=== PATIENT | male | born 1940 | race American Indian/Alaskan Native ===

== ENCOUNTER 2017-01-29 22:47 | Inpatient (IN) | payer MEDICARE ==
[2017-01-29] MEDS ORDERED: PROVENTIL IH ONE (23:12)
[2017-01-29] MEDS ORDERED: ATROVENT IH ONE (23:12)
[2017-01-29] MEDS ORDERED: TENIVAC IM ONE ×2 (23:13→23:32)
[2017-01-29] MEDS ORDERED: BOOSTRIX IM ONE (23:25)
--- NOTE | 2017-01-29 23:28 | Emergency Department Report ---
ED Fall HPI - General Chief Complaint: Fall Stated Complaint: FALL Time Seen by Provider: 01/29/17 23:05 Source: patient, EMS Mode of arrival: Stretcher Limitations: Physical Limitation, Other (dementia) - History of Present Illness Initial Comments: 76-year-old male with a past medical history of CHF, COPD, CVA, dementia, diabetes, hypertension, and renal disease presents to the hospital from [facility] with fall injury. Patient apparently fell out of bed. at bedside states that bed is fairly low he typically has a mat on the ground next to bed in case of fall. She did not see the mat earlier today. Patient sustained the contusion and laceration to the forehead and bridge of nose. No reports of LOC. Patient denies any pain. He is alert and oriented to self but states year as 2012 and did not realize he was in the hospital. reports tetanus is up-to-date within 10 years. However, per halfway tetanus is not up to date. Patient presents with hypoxia and audible wheezing. reports the patient takes 2 L oxygen at the halfway but the last 2-3 days he has had increased wheezing and shortness of breath episodes. Positive cough reported. senior care increase his oxygen to 3 L over the last several days. - Related Data Home Medications Medication Instructions Recorded Confirmed Last Taken Allopurinol [Zyloprim] 300 mg PO QDAY 06/21/15 06/21/15 Unknown Aspirin [Aspirin BABY CHEW TAB] 81 mg PO QDAY 06/21/15 06/21/15 Unknown Budesoni/Formoterol 80-4.5(Nf) 2 puff IH BID 06/21/15 06/21/15 Unknown [Symbicort 80-4.5 (Nf)] Donepezil [Aricept] 10 mg PO QDAY 06/21/15 06/21/15 Unknown Doxazosin [Cardura] 8 mg PO QDAY 06/21/15 06/21/15 Unknown Finasteride [Proscar] 5 mg PO QDAY 06/21/15 06/21/15 Unknown Gabapentin [Gralise] 300 mg PO TID 06/21/15 06/21/15 Unknown Heparin [Heparin 10,000 Units/10 5,000 unit IV Q12H 06/21/15 06/21/15 Unknown ml] Insulin Lispro [HumaLOG VIAL] 0 - 20 units SQ TIDAC 06/21/15 06/21/15 Unknown Insulin Lispro [HumaLOG VIAL] 1 - 5 units SQ TIDAC 06/21/15 06/21/15 Unknown Insulin NPH/Regular [NovoLIN 70/30] 12 unit SQ BID 06/21/15 06/21/15 Unknown Memantine HCl 10 mg PO BID 06/21/15 06/21/15 Unknown Metoprolol [Lopressor TAB] 25 mg PO QDAY 06/21/15 06/21/15 Unknown Pantoprazole [Protonix TAB] 40 mg PO QDAY 06/21/15 06/21/15 Unknown Tamsulosin [Flomax] 0.4 mg PO QDAY 06/21/15 06/21/15 Unknown hydrALAZINE [Apresoline TAB] 10 mg PO Q6H 06/21/15 06/21/15 Unknown predniSONE [Deltasone] 5 mg PO QDAY 06/21/15 06/21/15 Unknown Previous Rx's Medication Instructions Recorded Last Taken Type Furosemide [Lasix TAB] 40 mg PO QDAY #30 tablet 07/02/15 Unknown Rx Allergies Allergy/AdvReac Type Severity Reaction Status Date / Time No Known Allergies Allergy Verified 06/21/15 00:06 ED Review of Systems ROS: Stated complaint: FALL Other details as noted in HPI Comment: All other systems reviewed and negative Other: Limited due to dementia Constitutional: No fevers chills Respiratory:as per hpi Cardiovascular: Denies chest pain GI: Denies abdominal pain, nausea, vomiting : Denies dysuria Neurologic: Denies headache ED Past Medical Hx - Past Medical History Previous Medical History?: Yes Hx Hypertension: Yes Hx CVA: Yes (2009) Hx Congestive Heart Failure: Yes Hx Diabetes: Yes Hx Renal Disease: Yes Hx COPD: Yes Hx Dementia: Yes - Surgical History Past Surgical History?: Yes Hx Cholecystectomy: Yes Additional Surgical History: back surgery 1992, neck surgery 1996, gall bladder drain placement april 2015. - Social History Smoking Status: Unknown if ever smoked - Medications Home Medications: Home Medications Medication Instructions Recorded Confirmed Last Taken Type Allopurinol [Zyloprim] 300 mg PO QDAY 06/21/15 06/21/15 Unknown History Aspirin [Aspirin BABY CHEW TAB] 81 mg PO QDAY 06/21/15 06/21/15 Unknown History Budesoni/Formoterol 80-4.5(Nf) 2 puff IH BID 06/21/15 06/21/15 Unknown History [Symbicort 80-4.5 (Nf)] Donepezil [Aricept] 10 mg PO QDAY 06/21/15 06/21/15 Unknown History Doxazosin [Cardura] 8 mg PO QDAY 06/21/15 06/21/15 Unknown History Finasteride [Proscar] 5 mg PO QDAY 06/21/15 06/21/15 Unknown History Gabapentin [Gralise] 300 mg PO TID 06/21/15 06/21/15 Unknown History Heparin [Heparin 10,000 Units/10 5,000 unit IV Q12H 06/21/15 06/21/15 Unknown History ml] Insulin Lispro [HumaLOG VIAL] 0 - 20 units SQ TIDAC 06/21/15 06/21/15 Unknown History Insulin Lispro [HumaLOG VIAL] 1 - 5 units SQ TIDAC 06/21/15 06/21/15 Unknown History Insulin NPH/Regular [NovoLIN 70/30] 12 unit SQ BID 06/21/15 06/21/15 Unknown History Memantine HCl 10 mg PO BID 06/21/15 06/21/15 Unknown History Metoprolol [Lopressor TAB] 25 mg PO QDAY 06/21/15 06/21/15 Unknown History Pantoprazole [Protonix TAB] 40 mg PO QDAY 06/21/15 06/21/15 Unknown History Tamsulosin [Flomax] 0.4 mg PO QDAY 06/21/15 06/21/15 Unknown History hydrALAZINE [Apresoline TAB] 10 mg PO Q6H 06/21/15 06/21/15 Unknown History predniSONE [Deltasone] 5 mg PO QDAY 06/21/15 06/21/15 Unknown History Furosemide [Lasix TAB] 40 mg PO QDAY #30 tablet 07/02/15 Unknown Rx ED Physical Exam - General Limitations: Physical Limitation - Other Other exam information: General: Mild limitation due to dementia Head exam: Vertical mid forehead superficial laceration 1 cm, superficial laceration horizontal to the nasal bridge 1cm Eyes exam: Normal appearance, pupils equal reactive to light ENT: Moist mucous membrane, no septal hematoma Neck exam: Normal inspection, full range of motion, no meningismus nontender Respiratory exam: Prolonged expiratory phase, audible expiratory wheezing and tachypnea, bibasilar crackles Cardiovascular: Normal rate and rhythm Abdomen: Soft, nondistended, and nontender, with normal bowel sounds, no rebound, or guarding Extremity: Full range of motion normal inspection no deformity Back: Normal Inspection, full range of motion, no tenderness Neurologic: Alert, no facial droop, speech clear, equal strength bilaterally Psychiatric: normal affect, normal mood Skin: Warm, dry, intact ED Course Vital Signs 01/29/17 01/29/17 22:58 23:21 Pulse Rate 67 Pulse Rate [ 69 Throughout] Respiratory 22 Rate Respiratory 20 Rate [ Throughout] Blood Pressure 119/73 O2 Sat by Pulse 91 Oximetry - Reevaluation(s) Reevaluation #1: 01/30/17 02:47 Patient breathing improved after receiving albuterol and Atrovent. Patient also received medication for hyperkalemia including Kayexalate, Lasix, sodium bicarbonate, insulin, and glucose. - Laceration /Wound Repair Head Wound Location: face (forehead, nasal bridge) Wound Length (cm): 1 (each wound 1 cm x 2) Wound's Depth, Shape: superficial, linear Wound Explored: clean Irrigated w/ Saline (ccs): 20 Betadine Prep?: Yes Wound Debrided: none Wound Repaired With: Dermabond Layer Closure?: No Sterile Dressing Applied?: No ED Medical Decision Making - Lab Data Result diagrams: 01/29/17 23:20 01/29/17 23:20 Lab Results 01/29/17 01/29/17 Range/Units 23:20 23:20 WBC 6.7 (4.5-11.0) K/mm3 RBC 3.80 (3.65-5.03) M/mm3 Hgb 10.8 L (11.8-15.2) gm/dl Hct 32.8 L (35.5-45.6) % MCV 86 (84-94) fl MCH 28 (28-32) pg MCHC 33 (32-34) % RDW 13.9 (13.2-15.2) % Plt Count 156 (140-440) K/mm3 Lymph % (Auto) 22.0 (13.4-35.0) % Clarke % (Auto) 9.1 H (0.0-7.3) % Eos % (Auto) 8.1 H (0.0-4.3) % Baso % (Auto) 0.2 (0.0-1.8) % Lymph # 1.5 (1.2-5.4) K/mm3 Clarke # 0.6 (0.0-0.8) K/mm3 Eos # 0.5 H (0.0-0.4) K/mm3 Baso # 0.0 (0.0-0.1) K/mm3 Seg Neutrophils % 60.6 (40.0-70.0) % Seg Neutrophils # 4.1 (1.8-7.7) K/mm3 Sodium 128 L (137-145) mmol/L Potassium 6.0 H (3.6-5.0) mmol/L Chloride 84.4 L (98-107) mmol/L Carbon Dioxide 35 H (22-30) mmol/L Anion Gap 15 mmol/L BUN 24 H (9-20) mg/dL Creatinine 1.1 (0.8-1.5) mg/dL Estimated GFR > 60 ml/min BUN/Creatinine Ratio 21.81 % Glucose 191 H (75-100) mg/dL Calcium 9.1 (8.4-10.2) mg/dL NT-Pro-B Natriuret Pep 1219 H (0-900) pg/mL - EKG Data -: EKG Interpreted by Me (nsr twyla [id number], RBBB) - EKG Data When compared to previous EKG there are: no significant change (compared to ) - Radiology Data Radiology results: report reviewed CT head: Frontal scalp swelling without intracranial abnormality CT cervical spine: No acute findings chest x-ray: Diffuse interstitial and bibasilar opacities with small bilateral pleural effusions. Slightly more focal in the right perihilar and left lobe. Consider pomade even with atelectasis cannot exclude pneumonia. Mediastinum widening may be related to portable technique recommend PA/lateral or chest CT if clinical concern - Medical Decision Making Patient does not show any signs of acute injury secondary to fall except for superficial lacerations which were repaired with Dermabond. Coincidently patient also had respiratory symptoms and requires admission for CHF/pulmonary edema, hyperkalemia, and other electrolyte abnormalities. - Differential Diagnosis chf, copd, pneumonia, fxt, ich, contusion Critical Care Time: No Critical care attestation.: If time is entered above; I have spent that time in minutes in the direct care of this critically ill patient, excluding procedure time. ED Disposition Clinical Impression: Pulmonary edema, COPD exacerbation, Oxygen dependent, Hyperkalemia, Hyponatremia, Fall, Face lacerations, Minor head injury Disposition: OP ADMITTED IP TO THIS HOSP Is pt being admited?: Yes Condition: Stable Time of Disposition: 02:52
[2017-01-29 23:34] LABS: Basophils % (Auto) 0.2 % (0.0-1.8); Eosinophils % (Auto) 8.1 % (0.0-4.3); Hematocrit 32.8 % (35.5-45.6); Hemoglobin 10.8 gm/dl (11.8-15.2); Mean Corpuscular HGB Conc 33 % (32-34); Mean Corpuscular Hemoglobin 28 pg (28-32); Mean Corpuscular Volume 86 fl (84-94); Platelet Count 156 K/mm3 (140-440); Red Cell Distribution Width 13.9 % (13.2-15.2); White Blood Count 6.7 K/mm3 (4.5-11.0)
[2017-01-29 23:57] LABS: Anion Gap 15 mmol/L; BUN/Creatinine Ratio 21.81; Blood Urea Nitrogen 24 mg/dL (9-20); Calcium 9.1 mg/dL (8.4-10.2); Carbon Dioxide 35 mmol/L (22-30); Chloride 84.4 mmol/L (98-107); Glucose 191 mg/dL (75-100); Sodium 128 mmol/L (137-145)
[2017-01-30] MEDS ORDERED: BOOSTRIX IM ONE (00:15)
[2017-01-30] MEDS ORDERED: D50W (25GM) IV ONE (00:29)
[2017-01-30] MEDS ORDERED: SODIUM BICARBONATE IV ONE ×2 (00:29)
[2017-01-30] MEDS ORDERED: KIONEX PO ONE (00:29)
[2017-01-30] MEDS ORDERED: LASIX IV ONE (00:29)
--- NOTE | 2017-01-30 01:04 | XRay Report ---
FINAL REPORT PROCEDURE: XR CHEST 1V AP TECHNIQUE: Chest radiograph anteroposterior view. CPT 01100 HISTORY: Shortness of breath. Wheezing. COMPARISON: No prior studies are available for comparison. FINDINGS: Heart: Normal. Mediastinum/Vessels: Mild mediastinal widening.. Lungs/Pleural space: Diffuse interstitial and bibasilar opacities. Slightly more focal right perihilar and left lower lobe airspace disease. Small bilateral pleural effusions. Bony thorax: Osteopenia with degenerative changes of the spine and shoulder. Cervical spine hardware. Life support devices: None. IMPRESSION: Diffuse interstitial and bibasilar opacities with small bilateral pleural effusions. Slightly more focal in the right perihilar and left lower lobe. Consider pulmonary edema with atelectasis, cannot exclude pneumonia. Consider attention on followup PA and lateral chest radiograph. Mediastinal widening, may be related to portable technique. This can also be re-evaluated on PA and lateral chest radiograph or even chest CT depending on clinical concern..
--- NOTE | 2017-01-30 01:53 | Cat Scan Report ---
FINAL REPORT PROCEDURE: CT HEAD/BRAIN WO CON TECHNIQUE: Computerized tomography of the head was performed without contrast material. HISTORY: head injury, fall COMPARISON: No prior studies are available for comparison. FINDINGS: Skull and scalp: There is frontal scalp swelling. There is no skull fracture.. Paranasal sinuses: There has been endoscopic nasal sinus surgery. There is a 2 centimeter polyp or retention cyst in the right maxillary sinus. There are no air-fluid levels.. Ventricles and subarachnoid spaces: There is moderate central and cortical atrophy. There is no hydrocephalus per. Cerebrum: No evidence of hemorrhage, acute infarction or mass . Cerebellum and brainstem: No evidence of hemorrhage, acute infarction or mass. Vasculature: Normal. Comments: None. IMPRESSION: There is frontal scalp swelling. There is no intracranial hemorrhage. There is no skull fracture.
--- NOTE | 2017-01-30 02:36 | Cat Scan Report ---
FINAL REPORT PROCEDURE: CT CERVICAL SPINE WO CON TECHNIQUE: Computerized tomography of the cervical spine was performed from the skull base to T1 without contrast material. HISTORY: head injury, fall COMPARISON: No prior studies are available for comparison. FINDINGS: There is hardware transfixing C4, C5, C6 and C7. The hardware is intact. There are degenerative disc changes at C2-C3, C3-C4 and C7-T1. There are no fractures or malalignments. The facet joints are intact. The prevertebral soft tissues are normal in thickness. The skull base and the foramen magnum are intact. IMPRESSION: There are degenerative and postsurgical changes as described. There is no fracture..
[2017-01-30] MEDS ORDERED: NITROSTAT SL PRN (03:31)
[2017-01-30] MEDS ORDERED: ZOFRAN IV PRN (03:36)
[2017-01-30] MEDS ORDERED: TYLENOL PO PRN (03:39)
[2017-01-30] MEDS ORDERED: ROBITUSSIN PO PRN (03:41)
[2017-01-30] MEDS ORDERED: D50W (25GM) IV PRN (03:51)
--- NOTE | 2017-01-30 05:53 | History and Physical Report ---
CHIEF COMPLAINT: Shortness of breath and wheezing. Other complaint includes a fall. HISTORY OF PRESENT ILLNESS: The patient is a 76-year-old male brought from assisted after he fell from the bed with bruises to the face and forehead. The patient also has been having congestion and wheezing with shortness of breath according to the going on for about 2 to 3 days, there is no history of chest pain, no history of fever or chills, no history of nausea or vomiting. The patient did not lose consciousness after falling down and was brought to the Emergency Room. PAST MEDICAL HISTORY: Pertinent for congestive heart failure, COPD, hypertension, cerebrovascular accident, diabetes mellitus, renal insufficiency, and dementia. Also the patient has past history of benign prostatic hypertrophy, gout. PAST SURGICAL HISTORY: Pertinent for cholecystectomy, back surgery, and neck surgery. FAMILY HISTORY: Noncontributory. SOCIAL HISTORY: The patient stays at a assisted, does not smoke, does not drink alcohol, and does not use illicit drugs. MEDICATIONS: The patient is on allopurinol 300 mg by mouth daily, aspirin 81 mg by mouth daily, budesonide and formoterol, Symbicort 80/4.5 two puffs by inhalation twice daily, benazepril 10 mg by mouth daily, doxazosin or Cardura 8 mg by mouth daily, finasteride, Proscar 5 mg by mouth daily, gabapentin 300 mg p.o. t.i.d., heparin 5000 units q 12 hours most likely insulin lispro, Humalog sliding scale, insulin NPH/regular, Novolin 70/30, 12 units subq b.i.d., memantine hydrochloride 10 mg p.o. b.i.d., Lopressor 25 mg p.o. daily, pantoprazole 40 mg by mouth daily, tamsulosin 0.4 mg daily, Apresoline 10 mg every 6 hours, prednisone 5 mg p.o. daily, furosemide 40 mg p.o. daily. The patient is also on Lasix 40 mg by mouth daily. ALLERGIES: There are no known drug allergies. HOME MEDICATIONS: The patient is also on hydralazine 10 mg every 6 hours and prednisone 5 mg by mouth daily. REVIEW OF SYSTEMS: CONSTITUTIONAL: There is no fever, no chills, no diaphoresis. HEENT: There is no headache or sore throat. CARDIOVASCULAR SYSTEM: There is no chest pain or orthopnea. RESPIRATORY SYSTEM: There is shortness of breath, congestion, and cough. GASTROINTESTINAL SYSTEM: There is no nausea, no vomiting, no abdominal pain, diarrhea or constipation. NEUROLOGIC SYSTEM: There is no numbness, no dizziness, no altered mental status. MUSCULOSKELETAL SYSTEM: There is no joint pain or swelling. DERMATOLOGICAL SYSTEM: There are bruises on the face and forehead following a fall, there is no itching. GENITOURINARY SYSTEM: There is no dysuria, hematuria or flank pain. Rest of system review is normal. PHYSICAL EXAMINATION: GENERAL: At the time of exam, the patient was found to be alert and oriented x 3, and not in acute distress. VITAL SIGNS: Showed a normal temperature with pulse of 79, respiration of 14, blood pressure 118/56, O2 sat of 94% on room air. HEENT: Eyes show pupils to be equal, round, and reactive to light and accommodation. There are bruises on the forehead and also in the nasal bridge. NECK: Supple with no JVD or carotid bruit. CARDIOVASCULAR SYSTEM: Showed normal first and second heart sounds with no gallops or murmur. RESPIRATORY SYSTEM: Show scattered crackles bilaterally with good air entry on both sides. GASTROINTESTINAL SYSTEM: Show abdomen to be full, soft, nontender with no organomegaly or rigidity. NEUROLOGICAL: Showed no focal deficit. MUSCULOSKELETAL: Show no joint swelling or tenderness. DERMATOLOGICAL SYSTEM: Showing bruises on the forehead and nasal area of the face. GENITOURINARY: Show no costovertebral angle tenderness. PERTINENT LABORATORY AND IMAGING STUDIES: The patient had CT of the head done with no report of any acute intracranial process. Also, the patient has cervical spine CT done that shows no fracture or dislocation. The patient's chest x-ray report shows diffuse interstitial bibasilar opacity with small bilateral pleural effusions. There is finding of slightly more interstitial opacity in the right perihilar and left lower lobe and the radiologist say to consider pulmonary edema with atelectasis, exclude pneumonia. consider the patient on follow up of PA and lateral chest radiograph. Also mentioned widening mediastinum that he thinks is related to portable technique and he says that this can be reevaluated on PA and lateral chest radiograph or even a CT of the chest. Please note that the patient's lab results shows CBC with normal white count, low hemoglobin of 10.8 and low hematocrit of 32.8 with chemistry showing low sodium of 128 and high potassium level of 6.0 with high CO2 of 35 and elevated proBNP, brain natriuretic peptide, of 1219. DIAGNOSES: 1. Congestive heart failure exacerbation. 2. Low sodium leve/ hyponatremia. 3. Hyperkalemia. PLAN: The patient will be admitted to medical floor and telemetry, using the CHF pathway, and we will have cardiac enzymes involving troponin, total CK, and CK-MB checked q 6 hours x 2 more levels. The patient will have 2D echo done this morning and would have basic metabolic panel checked this morning. The patient will be on IV Lasix 40 mg daily. The patient will be on nitro paste half inch to anterior chest wall q 6 hours and will be on heparin 5000 units subQ q 8 hours for DVT prophylaxis. The patient will be on IV Zofran 4 mg q 6 hours for nausea and vomiting and Tylenol 650 mg by mouth q 4 hours for fever and headache. The patient would be on Robitussin suspension 200 mg p.o. q 4 hours as needed for cough and will be on baby aspirin 81 mg by mouth daily. The patient's diet will be cardiac diet and consistent carbohydrate diet. The patient will be on Accu-Chek a.c. and at bedtime followed by low-dose sliding scale using regular insulin. The patient will have strict input and output fluids monitoring. The patient's home medications will be reconciled and applied. JOB# [id number] [facility]/FAIZA REYES
[2017-01-30 06:36] LABS: Creatine Kinase MB 3.8 ng/mL (0.0-4.0)
[2017-01-30] MEDS: HEPARIN SUB-Q SCH ×3 (06:50→21:21)
[2017-01-30] MEDS: NITRO-BID 2% TP SCH ×4 (06:51→17:47)
[2017-01-30 06:54] LABS: Anion Gap 16 mmol/L; Blood Urea Nitrogen 26 mg/dL (9-20); Calcium 8.7 mg/dL (8.4-10.2); Carbon Dioxide 35 mmol/L (22-30); Chloride 85.2 mmol/L (98-107); Glucose 139 mg/dL (75-100); Potassium 5.1 mmol/L (3.6-5.0); Sodium 131 mmol/L (137-145)
[2017-01-30] MEDS ORDERED: DIVALPROEX SODIUM 125 MG PO SCH (10:00)
[2017-01-30] MEDS ORDERED: LACTOBACILLUS ACIDOPHILUS PO SCH (10:00)
[2017-01-30] MEDS ORDERED: CELEXA 10 MG PO SCH (10:00)
[2017-01-30] MEDS ORDERED: NON-FORMULARY (Memantine Hcl [Namenda Xr] 28 MG) PO SCH (10:00)
[2017-01-30] MEDS ORDERED: MULTIVIT WITH CALCIUM IRON MIN PO SCH (10:00)
[2017-01-30] MEDS ORDERED: ARIPIPRAZOLE 2.5 MG PO SCH (10:00)
[2017-01-30] MEDS ORDERED: NON-FORMULARY (Metoprolol Succinate Er Tab 25 MG) PO SCH (10:00)
[2017-01-30] MEDS ORDERED: NON-FORMULARY (Prednisone 5 MG) PO SCH (10:00)
[2017-01-30] MEDS ORDERED: RISPERDAL PO SCH (10:00)
[2017-01-30] MEDS: FERGON PO SCH (10:30)
[2017-01-30] MEDS: NAMENDA XR PO SCH (10:30)
[2017-01-30] MEDS: LACTINEX PO SCH ×2 (10:30→21:20)
[2017-01-30] MEDS: DELTASONE PO SCH (10:31)
[2017-01-30] MEDS: celeXA PO SCH (10:31)
[2017-01-30] MEDS: PROSCAR PO SCH (10:31)
[2017-01-30] MEDS: ABILIFY PO SCH (10:31)
[2017-01-30] MEDS: THERAGRAN-M Tab PO SCH (10:31)
[2017-01-30] MEDS: RisperDAL PO SCH ×2 (10:31→21:20)
[2017-01-30] MEDS: BABY ASPIRIN PO SCH (10:32)
[2017-01-30] MEDS: TOPROL XL PO SCH (10:32)
[2017-01-30] MEDS: LASIX IV SCH (10:32)
[2017-01-30 14:19] LABS: Creatine Kinase MB 3.4 ng/mL (0.0-4.0)
[2017-01-30] MEDS: ATROVENT IH SCH ×2 (17:07→20:15)
--- NOTE | 2017-01-30 17:18 | Consultation ---
History of Present Illness Consult date: 01/30/17 History of present illness: 76-year-old male with a past medical history of CHF, COPD, CVA, dementia, diabetes, hypertension, and renal disease presents to the hospital from [facility] with fall injury. Patient apparently fell out of bed. at bedside states that bed is fairly low he typically has a mat on the ground next to bed in case of fall. She did not see the mat earlier today. Patient sustained the contusion and laceration to the forehead and bridge of nose. No reports of LOC. Patient denies any pain. He is alert and oriented to self but states year as 2012 and did not realize he was in the hospital. reports tetanus is up-to-date within 10 years. However, per senior care tetanus is not up to date. Patient presents with hypoxia and audible wheezing. reports the patient takes 2 L oxygen at the senior care but the last 2-3 days he has had increased wheezing and shortness of breath episodes. Positive cough reported. detention increase his oxygen to 3 L over the last several days. Patient is comfortable,no family available,patient could not give much history. Past History Past Medical History: COPD, hypertension, stroke (hemiplegia from intracerebral bleed affecting right side(hx from [place] records).), other (legal blindness, psychotic disorder.) Medications and Allergies Allergies Allergy/AdvReac Type Severity Reaction Status Date / Time No Known Allergies Allergy Verified 06/21/15 00:06 Home Medications Medication Instructions Recorded Confirmed Last Taken Type ALBUTEROL NEB's [Proventil 0.083% 2.5 mg TID PRN 01/30/17 01/30/17 Unknown History NEBS] ARIPiprazole [Aripiprazole] 2.5 mg PO DAILY 01/30/17 01/30/17 Unknown History Aspirin [Aspirin BABY CHEW TAB] 81 mg PO QDAY 01/30/17 01/30/17 Unknown History Celexa 10 mg DAILY 01/30/17 01/30/17 Unknown History Divalproex Sodium 125 mg BID 01/30/17 01/30/17 Unknown History Donepezil HCl 10 mg PO HS 01/30/17 01/30/17 Unknown History Ferrous Gluconate [Fergon] 324 mg PO DAILY 01/30/17 01/30/17 Unknown History Finasteride [Proscar] 5 mg DAILY 01/30/17 01/30/17 Unknown History Imodium A-D 2 caplet Q1HR PRN MDD 8 TABS/24 01/30/17 01/30/17 Unknown History HOURS Insulin Regular, Human 3 units SC ACHS 01/30/17 01/30/17 Unknown History Ipratropium [Atrovent NEB] 0.5 mg Q8HR PRN 01/30/17 01/30/17 Unknown History Lactobacillus Acidophilus 1 tab BID 01/30/17 01/30/17 Unknown History [Acidophilus] Levemir 17 units SQ HS 01/30/17 01/30/17 Unknown History Magnesium Hydroxide [Milk of 30 ml PO HS PRN 01/30/17 01/30/17 Unknown History Magnesia] Memantine HCl [Namenda Xr] 28 mg DAILY 01/30/17 01/30/17 Unknown History Metoprolol SUCCINATE ER TAB 25 mg DAILY 01/30/17 01/30/17 Unknown History Multivit with Calcium,Iron,Min 1 tab DAILY 01/30/17 01/30/17 Unknown History Prednisone 5 mg DAILY 01/30/17 01/30/17 Unknown History QUEtiapine [SEROquel] 25 mg PO HS 01/30/17 01/30/17 Unknown History RisperDAL 0.25 mg BID 01/30/17 01/30/17 Unknown History Tamsulosin 0.4 mg HS 01/30/17 01/30/17 Unknown History guaiFENesin 100 mg Q6HR PRN 01/30/17 01/30/17 Unknown History Active Meds: Active Medications Acetaminophen (Tylenol) 650 mg PO Q6H PRN PRN Reason: For Pain/Fever/Headache Aripiprazole (Abilify) 2.5 mg PO QDAY [facility] Last Admin: 01/30/17 10:31 Dose: 2.5 mg Aspirin (Baby Aspirin) 81 mg PO QDAY [facility] Last Admin: 01/30/17 10:32 Dose: 81 mg Citalopram Hydrobromide (Celexa) 10 mg PO DAILY [facility] Last Admin: 01/30/17 10:31 Dose: 10 mg Dextrose (D50w (25gm)) 50 ml IV PRN PRN PRN Reason: Hypoglycemia Divalproex Sodium (Depakote Dr) 125 mg PO BID [facility] Last Admin: 01/30/17 10:31 Dose: 125 mg Donepezil HCl (Aricept) 10 mg PO [facility] Ferrous Gluconate (Fergon) 324 mg PO DAILY [facility] Last Admin: 01/30/17 10:30 Dose: 324 mg Finasteride (Proscar) 5 mg PO DAILY [facility] Last Admin: 01/30/17 10:31 Dose: 5 mg Furosemide (Lasix) 40 mg IV QDAY [facility] Last Admin: 01/30/17 10:32 Dose: 40 mg Guaifenesin (Robitussin) 200 mg PO Q4H PRN PRN Reason: Cough Heparin Sodium (Porcine) (Heparin) 5,000 unit SUB-Q Q8HR [facility] Last Admin: 01/30/17 13:18 Dose: 5,000 unit Levofloxacin/Dextrose (Levaquin 500mg/100ml) 500 mg in 100 mls @ 100 mls/hr IV Q24HR [facility] PRN Reason: Protocol Insulin Human Regular (Novolin R) 0 units SUB-Q [facility] PRN Reason: Protocol Last Admin: 01/30/17 13:18 Dose: 1 units Ipratropium [place] (Atrovent) 0.5 mg IH QIDRT [facility] Last Admin: 01/30/17 17:07 Dose: 0.5 mg Lactobacillus Acidophilus (Lactinex) 1 each PO BID [facility] Last Admin: 01/30/17 10:30 Dose: 1 each Memantine (Namenda Xr) 28 mg PO DAILY [facility] Last Admin: 01/30/17 10:30 Dose: 28 mg Metoprolol Succinate (Toprol Xl) 25 mg PO QDAY [facility] Last Admin: 01/30/17 10:32 Dose: 25 mg Multivitamins/Minerals (Theragran-M Tab) 1 each PO QDAY [facility] Last Admin: 01/30/17 10:31 Dose: 1 each Nitroglycerin (Nitrostat) 0.4 mg SL .Q5MIN PRN PRN Reason: Chest Pain Nitroglycerin (Nitro-Bid 2%) 0.5 inch TP QIDNTG [facility] PRN Reason: Protocol Last Admin: 01/30/17 13:19 Dose: 0.5 inch Ondansetron HCl (Zofran) 4 mg IV Q6H PRN PRN Reason: Nausea And Vomiting Prednisone (Deltasone) 5 mg PO QDAY [facility] Last Admin: 01/30/17 10:31 Dose: 5 mg Quetiapine Fumarate (Seroquel) 25 mg PO HS NO Risperidone (Risperdal) 0.25 mg PO BID NO Last Admin: 01/30/17 10:31 Dose: 0.25 mg Tamsulosin HCl (Flomax) 0.4 mg PO QHS [facility] Review of Systems ROS unobtainable: due to mental status Physical Examination Vital Signs Pulse Ox 89 01/29/17 22:52 General appearance: no acute distress HEENT: Positive: PERRL Neck: Positive: neck supple, trachea midline Cardiac: Positive: Reg Rate and Rhythm Lungs: Positive: Decreased Breath Sounds (diffuse wheezing,decreased breath sounds.) Neuro: Positive: Other (could not evaluate,can't give much hx.) Abdomen: Positive: Unremarkable Extremities: Absent: edema Results 01/29/17 23:20 01/30/17 05:49 Cardiac Enzymes 01/30/17 01/30/17 Range/Units 05:49 13:48 CK-MB (CK-2) 3.8 3.4 (0.0-4.0) ng/mL Lipids 01/30/17 Range/Units 05:49 Triglycerides 62 (2-149) mg/dL Cholesterol 97 (50-199) mg/dL HDL Cholesterol 51 (40-59) mg/dL Cholesterol/HDL Ratio 1.90 % Comprehensive Metabolic Panel 01/30/17 Range/Units 05:49 Sodium 131 L (137-145) mmol/L Potassium 5.1 H (3.6-5.0) mmol/L Chloride 85.2 L (98-107) mmol/L Carbon Dioxide 35 H (22-30) mmol/L BUN 26 H (9-20) mg/dL Creatinine 1.3 (0.8-1.5) mg/dL Glucose 139 H (75-100) mg/dL Calcium 8.7 (8.4-10.2) mg/dL Laboratory Tests 01/30/17 01/30/17 05:49 13:48 Total Creatine Kinase 176 H 205 H CK-MB (CK-2) 3.8 3.4 CK-MB (CK-2) Rel Index 2.1 1.6 Troponin T 0.132 H* 0.098 H - Imaging and Cardiology EKG: image reviewed (S.R,RBBB) Assessment and Plan 76-year-old male with a past medical history of CHF, COPD, CVA, dementia, diabetes, hypertension, and renal disease presents to the hospital from [facility] with fall injury. Patient apparently fell out of bed. at bedside states that bed is fairly low he typically has a mat on the ground next to bed in case of fall. She did not see the mat earlier today. Patient sustained the contusion and laceration to the forehead and bridge of nose. No reports of LOC. Patient denies any pain. He is alert and oriented to self but states year as 2012 and did not realize he was in the hospital. reports tetanus is up-to-date within 10 years. However, per senior care tetanus is not up to date. Patient presents with hypoxia and audible wheezing. reports the patient takes 2 L oxygen at the senior care but the last 2-3 days he has had increased wheezing and shortness of breath episodes. Positive cough reported. detention increase his oxygen to 3 L over the last several days. - Patient Problems (1) Elevated troponin I level Current Visit: Yes Status: Acute Plan to address problem: elevated troponin levels with normal CK and MB noted,significance of this not clear.Denies any chest pain,had bilateral wheezing in lungs,COPD with exacerebation vs CHF.will get more infromation once is available.Will get echo for LV function. Continue present rx. (2) COPD exacerbation Current Visit: Yes Status: Acute (3) Minor head injury Current Visit: Yes Status: Acute Qualifiers: Encounter type: E (4) Dysphagia Current Visit: No Status: Acute Qualifiers: Dysphagia type: D (5) HTN (hypertension), benign Current Visit: No Status: Acute (6) CVA (cerebral infarction) Current Visit: No Status: Chronic Qualifiers: Cerebral infarction mechanism: thrombosis Precerebral and cerebral artery: P Laterality of affected vessel: L (7) Diabetes Current Visit: No Status: Chronic Qualifiers: Diabetes mellitus type: type 2 Diabetes mellitus complication status: with neurologic complications Diabetes mellitus complication detail: D Diabetic retinopathy severity: D Proliferative retinopathy type: P Diabetes mellitus macular edema: D Diabetes mellitus senior care insulin use: D Laterality: L Chronic kidney disease stage: C
[2017-01-30] MEDS: LEVAQUIN 500MG/100ML 500 MG/100 ML BAG IV SCH (17:24)
--- NOTE | 2017-01-30 17:41 | Cat Scan Report ---
FINAL REPORT EXAM: CT CHEST WITH IV CONTRAST ABDOMEN CT WITH IV CONTRAST HISTORY: Cough, SOB TECHNIQUE: CT examination of the chest after IV contrast CT examination of the abdomen after IV contrast PRIORS: One-view chest 01/29/2017 FINDINGS: CHEST CT: Cardiomegaly without pericardial effusion. Intact normal caliber thoracic aorta with moderate calcified and noncalcified plaque the visualized pulmonary arteries are diffusely patent. Enlarged main pulmonary artery as well as right and left main pulmonary arteries may reflect pulmonary arterial hypertension. No esophageal wall thickening. No definite hilar mass or mediastinal adenopathy. Small right pleural effusion with adjacent right lower lobe posterior inferior atelectasis. Moderate left pleural effusion layers posteriorly. Adjacent left lower lobe consolidation may reflect atelectasis and/or pneumonia. Degenerative change in the regional skeleton. No evidence of acute fracture or focal osseous lesion. Slight bilateral pulmonary emphysema with upper lobe predominance. No evidence of pneumothorax. No definite lung mass or pulmonary nodule. ABDOMEN CT: Minimal density in the gallbladder lumen may be tiny granular calculi. Normal-appearing liver, adrenals, pancreas, and spleen. Normal caliber abdominal aorta with moderate calcified and noncalcified plaque. Normal caliber IVC. Nonspecific, smoothly marginated, low density bilateral renal lesions may be cysts. No evidence of renal calculus or hydronephrosis. No proximal ureteral calculus or distention. Normal-appearing stomach and duodenum. No upper abdominal ascites. No evidence of distention of small and large intestine. Moderate diverticulosis in descending colon. IMPRESSION: CHEST CT: Cardiomegaly Enlarged pulmonary arteries may reflect pulmonary arterial hypertension Small right pleural effusion with adjacent right lower lobe atelectasis Moderate left pleural effusion with adjacent consolidation suggesting atelectasis and/or pneumonia Bilateral slight pulmonary emphysema with upper lobe predominance ABDOMEN CT: Minimal gallbladder lumen density may be tiny granular calculi Bilateral renal lesions suggestive of cysts Moderate diverticulosis in the descending colon
[2017-01-30] MEDS: ARICEPT PO SCH (21:20)
[2017-01-30] MEDS: FLOMAX PO SCH (21:20)
[2017-01-30] MEDS ORDERED: NON-FORMULARY (Tamsulosin 0.4 MG) PO SCH (22:00)
[2017-01-31] MEDS: NITRO-BID 2% TP SCH ×4 (06:00→17:58)
[2017-01-31] MEDS: HEPARIN SUB-Q SCH ×3 (06:01→21:11)
[2017-01-31] MEDS: ATROVENT IH SCH ×4 (08:10→20:12)
[2017-01-31] MEDS: LEVAQUIN 500MG/100ML 500 MG/100 ML BAG IV SCH (10:01)
[2017-01-31] MEDS: BABY ASPIRIN PO SCH (10:02)
[2017-01-31] MEDS: celeXA PO SCH (10:02)
[2017-01-31] MEDS: FERGON PO SCH (10:02)
[2017-01-31] MEDS: ABILIFY PO SCH (10:02)
[2017-01-31] MEDS: TOPROL XL PO SCH (10:02)
[2017-01-31] MEDS: DELTASONE PO SCH (10:02)
[2017-01-31] MEDS: NAMENDA XR PO SCH (10:03)
[2017-01-31] MEDS: LASIX IV SCH (10:03)
[2017-01-31] MEDS: RisperDAL PO SCH ×2 (10:03→21:10)
[2017-01-31] MEDS: THERAGRAN-M Tab PO SCH (10:03)
[2017-01-31] MEDS: PROSCAR PO SCH (10:03)
[2017-01-31] MEDS: LACTINEX PO SCH ×2 (10:03→21:11)
[2017-01-31] MEDS ORDERED: DELTASONE PO SCH (11:48)
--- NOTE | 2017-01-31 15:54 | Progress Note ---
Assessment and Plan 76-year-old male with a past medical history of CHF, COPD, CVA, dementia, diabetes, hypertension, and renal disease presents to the hospital from [facility] with fall injury. Patient apparently fell out of bed. at bedside states that bed is fairly low he typically has a mat on the ground next to bed in case of fall. She did not see the mat earlier today. Patient sustained the contusion and laceration to the forehead and bridge of nose. No reports of LOC. Patient denies any pain. He is alert and oriented to self but states year as 2012 and did not realize he was in the hospital. reports tetanus is up-to-date within 10 years. However, per retirement tetanus is not up to date. Patient presents with hypoxia and audible wheezing. reports the patient takes 2 L oxygen at the retirement but the last 2-3 days he has had increased wheezing and shortness of breath episodes. Positive cough reported. alf increase his oxygen to 3 L over the last several days. 01/31/2017>According to patient's ,had hx. of atrial fib in past,hx. of CHF and hx. 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 - Patient Problems (1) Elevated troponin I level Current Visit: Yes Status: Acute Plan to address problem: elevated troponin levels with normal CK and MB noted,significance of this not clear.Denies any chest pain,had bilateral wheezing in lungs,COPD with exacerebation vs CHF.will get more infromation once is available.Will get echo for LV function. Continue present rx. 01/31/2017>patient without chest pain. Had hx. of atrial fib,CHF and OH according to patient's . Would continue conservative rx.Discussed with . (2) COPD exacerbation Current Visit: Yes Status: Acute (3) Minor head injury Current Visit: Yes Status: Acute Qualifiers: Encounter type: E (4) Dysphagia Current Visit: No Status: Acute Qualifiers: Dysphagia type: D (5) HTN (hypertension), benign Current Visit: No Status: Acute (6) CVA (cerebral infarction) Current Visit: No Status: Chronic Qualifiers: Cerebral infarction mechanism: thrombosis Precerebral and cerebral artery: P Laterality of affected vessel: L (7) Diabetes Current Visit: No Status: Chronic Qualifiers: Diabetes mellitus type: type 2 Diabetes mellitus complication status: with neurologic complications Diabetes mellitus complication detail: D Diabetic retinopathy severity: D Proliferative retinopathy type: P Diabetes mellitus macular edema: D Diabetes mellitus long winder tender insulin use: D Laterality: L Chronic kidney disease stage: C Subjective Date of service: 01/31/17 Interval history: Patient comfortable, at bedside.Hx. obtained from . Patient is mostly bed bound,sometimes in wheel chair.Comfortable,no chest pain.Telemetry showing S.R with APC's. Objective Vital Signs Temp Pulse Pulse Pulse Resp Resp BP 01/31/17 15:28 01/31/17 12:19 68 18 01/31/17 12:09 68 18 01/31/17 09:40 97.8 F 63 01/31/17 09:30 65 01/31/17 08:20 74 18 01/31/17 08:10 71 18 01/31/17 06:00 83 130/74 01/31/17 05:04 98.1 F 68 20 01/31/17 01:21 97.5 F L 71 20 01/30/17 22:00 86 18 01/30/17 21:40 99.0 F 65 20 01/30/17 20:24 86 18 01/30/17 20:17 01/30/17 20:15 76 18 01/30/17 17:42 98.6 F 91 H 18 01/30/17 17:17 78 20 01/30/17 17:07 101 H 18 BP BP Pulse Ox 01/31/17 15:28 137/74 01/31/17 12:19 01/31/17 12:09 01/31/17 09:40 120/67 95 01/31/17 09:30 01/31/17 08:20 01/31/17 08:10 95 01/31/17 06:00 01/31/17 05:04 106/72 93 01/31/17 01:21 128/64 95 01/30/17 22:00 01/30/17 21:40 138/73 95 01/30/17 20:24 01/30/17 20:17 93 01/30/17 20:15 01/30/17 17:42 123/68 95 01/30/17 17:17 01/30/17 17:07 - Physical Examination HEENT: Positive: PERRL Neck: Positive: neck supple, trachea midline Cardiac: Positive: Regular Rhythm Neuro: Positive: Other (could not evaluate,can't give much hx.) Abdomen: Positive: Unremarkable Extremities: Absent: edema - Imaging and Cardiology EKG: image reviewed (S.R,RBBB)
[2017-01-31] MEDS: FLOMAX PO SCH (21:10)
[2017-01-31] MEDS: ARICEPT PO SCH (21:11)
[2017-02-01] MEDS: NITRO-BID 2% TP SCH ×3 (05:55→13:13)
[2017-02-01] MEDS: HEPARIN SUB-Q SCH ×2 (05:56→13:11)
[2017-02-01] MEDS: ATROVENT IH SCH ×2 (08:14→12:07)
--- NOTE | 2017-02-01 08:53 | Admit Criteria Form ---
Admission Criteria Documentation: PULMONARY EDEMA Clinical Indications for Admission to Inpatient Care (Place 'X' for any and all applicable criteria): Admission is indicated by ANY ONE of the following(1)(2)(3)(4): [X ]I. Severe electrolyte abnormalities requiring inpatient care(9) [ ]II. Hemodynamic instability [ ]III. Anasarca [ ]IV. Acute cardiac ischemia causing or associated with failure (Also use Angina or Myocardial Infarction as appropriate) [ ]V. Cardiac arrhythmias of immediate concern [ ]. Precipitating cause for acute decompensation (eg, pneumonia, pulmonary embolism) requires inpatient care [ ]VII. Pulmonary edema that is very severe (eg, mechanical ventilation needed, imminent or likely, need for 100% oxygen to keep oxygen saturation above 90%) [ ]VIII. Inpatient admission required rather than observation care (Also use Heart Failure: Observation Care as appropriate) because of ANY ONE of the following: [ ]a) Pulmonary edema that is severe or worsening as indicated by ALL of the following: [ ]i) New need for oxygen therapy to keep oxygen saturation above 90% (or increased FiO2 need from baseline) [ ]ii) Has not improved sufficiently with emergency department or observation care IV diuretics or other heart failure treatments[C] [ ]b) Cognitive impairment that is severe or persistent [ ]c) Increased creatinine (new on laboratory test) with reduction of more than 50% in estimated glomerular filtration rate from baseline. [ ]d) Acute renal insufficiency (progressively (ongoing) rising creatinine (known from past laboratory test) with reduction of more than 25% in estimated glomerular filtration rate from baseline) [ ]e) Acute peripheral ischemia (eg, pulseless, cool, mottled, or cyanotic extremity) [ ]f) Acute renal failure [ ]g) Supplemental O2 or respiratory treatment for >24 hr that are performable only in acute inpatient setting [ ]h) Pulmonary artery catheter monitoring [ ]i) Other condition, treatment or monitoring requiring inpatient admission Extended stay beyond goal length of stay may be needed for(1)(3)(21)(25): [ ]a) Cardiac ischemia, confirmed or suspected as precipitant [ ]b) Cardiogenic shock or refractory pulmonary edema [ ]c) Acute kidney injury or renal failure [ ]d) Respiratory failure (eg, need for noninvasive or invasive mechanical ventilation) (23) [ ]e) Concomitant pneumonia or significant electrolyte abnormality (eg, severe hyponatremia) [ ]f) Newly diagnosed (new onset) atrial fibrillation [ ]g) Stage IV chronic kidney disease (estimated glomerular filtration rate of less than 30 mL/min/1.73m2 (0.50 mL/sec/1.73m2), and not previously on chronic dialysis (Contents from HEART FAILURE clinical indications for admission to inpatient care have been integrated in this form) The original [employer] content created by [employer] has been revised. The portions of the content which have been revised are identified through the use of italic text or in bold, and [facility] has neither reviewed nor approved the modified material. All other unmodified content is copyright [facility] Please see references footnoted in the original [employer] [facility] [employer] edition 2016 Admission Criteria Met: Yes
[2017-02-01] MEDS: LACTINEX PO SCH (10:23)
[2017-02-01] MEDS: BABY ASPIRIN PO SCH (10:23)
[2017-02-01] MEDS: FERGON PO SCH (10:23)
[2017-02-01] MEDS: ABILIFY PO SCH (10:23)
[2017-02-01] MEDS: PROSCAR PO SCH (10:24)
[2017-02-01] MEDS: celeXA PO SCH (10:25)
[2017-02-01] MEDS: LASIX IV SCH (10:26)
[2017-02-01] MEDS: NAMENDA XR PO SCH (10:26)
[2017-02-01] MEDS: THERAGRAN-M Tab PO SCH (10:27)
[2017-02-01] MEDS: RisperDAL PO SCH (10:27)
[2017-02-01] MEDS: TOPROL XL PO SCH (10:28)
[2017-02-01] MEDS: LEVAQUIN 500MG/100ML 500 MG/100 ML BAG IV SCH (10:34)
--- NOTE | 2017-02-01 11:41 | Progress Note ---
Assessment and Plan - Patient Problems (1) Elevated troponin I level Current Visit: Yes Status: Acute Plan to address problem: elevated troponin levels with normal CK and MB noted,significance of this not clear.Denies any chest pain, ECG with NAF. (2) COPD exacerbation Current Visit: Yes Status: Acute (3) Minor head injury Current Visit: Yes Status: Acute Qualifiers: Encounter type: E (4) Dysphagia Current Visit: No Status: Acute Qualifiers: Dysphagia type: D (5) HTN (hypertension), benign Current Visit: No Status: Acute (6) CVA (cerebral infarction) Current Visit: No Status: Chronic Qualifiers: Cerebral infarction mechanism: thrombosis Precerebral and cerebral artery: P Laterality of affected vessel: L (7) Diabetes Current Visit: No Status: Chronic Qualifiers: Diabetes mellitus type: type 2 Diabetes mellitus complication status: with neurologic complications Diabetes mellitus complication detail: D Diabetic retinopathy severity: D Proliferative retinopathy type: P Diabetes mellitus macular edema: D Diabetes mellitus alf insulin use: D Laterality: L Chronic kidney disease stage: C ' Currently stable cardiac status. Cont with current conservative medical management. Will see PRN. The patient has been seen in conjunction with Dr. Dominique who agrees with the assessment and plan of care. Subjective Date of service: 02/01/17 Principal diagnosis: fall Interval history: Pt resting comfortably in bed, denies any complaints. VSS. Objective Last Vital Signs Temp 97.9 F 02/01/17 07:50 Pulse 78 02/01/17 10:00 Resp 20 02/01/17 10:00 BP 136/68 02/01/17 07:50 Pulse Ox 89 02/01/17 10:00 - Physical Examination General: No Apparent Distress HEENT: Positive: PERRL Neck: Positive: neck supple, trachea midline Cardiac: Positive: Reg Rate and Rhythm, S1/S2 Lungs: Positive: Normal Exam, clear to auscultation, Normal Breath Sounds Neuro: Positive: Grossly Intact Abdomen: Positive: Unremarkable, Soft, Active Bowel Sounds. Negative: Tender Skin: Positive: Clear, Other (forehead laceration ). Negative: Rash Musculoskeletal: No Fluid Collection, No Pain, Normal Range of Motion Extremities: Present: upper extr. pulses, lower extr. pulses. Absent: edema - Imaging and Cardiology EKG: image reviewed (S.R,RBBB) - Telemetry EKG Rhythm: Sinus Rhythm
--- NOTE | 2017-02-01 13:00 | Progress Note ---
Assessment and Plan Assessment and plan: 68-year-old man with a past medical history of multiple strokes, dementia, COPD CHF who presented after jumping out of his bed and falling on his face and his senior care. Of note he had trauma imaging that did not show any fractures or internal injuries he just suffered from contusions of his forehead and scalp 1. Status post fall Trauma imaging does not show any internal damage, wound care for contusions to face and scalp 2. CHF Patient appears to be euvolemic, continue medical management 3. Hyponatremia Has now resolved after receiving some IV fluids 4. Hyperkalemia Has not resolved after receiving fluids 5. Dementia Continue supportive care 6. COPD does not appear to be exacerbation, continue chronic medications which include daily prednisone and inhalers 7. CK-MB stage III Avoid nephrotoxic agents 8. Hypertension Continuing home medications 9. Diabetes Continue insulin sliding scale History Interval history: Patient is confused at baseline, there have been no events, his family members at bedside state that he has not been complaining of pain or shortness of breath. Hospitalist Physical - Physical exam Narrative exam: General: Patient appears well in no distress HEENT: Multiple abrasions and contusions on his face forehead and scalp cardiac: S1-S2 heard lungs: clear to auscultation, abdomen: soft, nontender, nondistended bowel sounds positive extremities: no edema clubbing or cyanosis Skin: no rash or lesion Neuro: Moves all extremities, obeys commands, demented, oriented only to person - Constitutional Vitals: Temp Pulse Resp BP Pulse Ox 97.9 F 74 18 136/68 89 02/01/17 07:50 02/01/17 12:26 02/01/17 12:26 02/01/17 07:50 02/01/17 10:00 General appearance: Present: no acute distress Results - Labs CBC & Chem 7: 01/29/17 23:20 01/30/17 05:49 Labs: Laboratory Last Values WBC 6.7 K/mm3 (4.5-11.0) 01/29/17 23:20 RBC 3.80 M/mm3 (3.65-5.03) 01/29/17 23:20 Hgb 10.8 gm/dl (11.8-15.2) L 01/29/17 23:20 Hct 32.8 % (35.5-45.6) L 01/29/17 23:20 MCV 86 fl (84-94) 01/29/17 23:20 MCH 28 pg (28-32) 01/29/17 23:20 MCHC 33 % (32-34) 01/29/17 23:20 RDW 13.9 % (13.2-15.2) 01/29/17 23:20 Plt Count 156 K/mm3 (140-440) 01/29/17 23:20 Lymph % (Auto) 22.0 % (13.4-35.0) 01/29/17 23:20 [place] % (Auto) 9.1 % (0.0-7.3) H 01/29/17 23:20 Eos % (Auto) 8.1 % (0.0-4.3) H 01/29/17 23:20 Baso % (Auto) 0.2 % (0.0-1.8) 01/29/17 23:20 Lymph # 1.5 K/mm3 (1.2-5.4) 01/29/17 23:20 [place] # 0.6 K/mm3 (0.0-0.8) 01/29/17 23:20 Eos # 0.5 K/mm3 (0.0-0.4) H 01/29/17 23:20 Baso # 0.0 K/mm3 (0.0-0.1) 01/29/17 23:20 Seg Neutrophils % 60.6 % (40.0-70.0) 01/29/17 23:20 Seg Neutrophils # 4.1 K/mm3 (1.8-7.7) 01/29/17 23:20 Sodium 131 mmol/L (137-145) L 01/30/17 05:49 Potassium 5.1 mmol/L (3.6-5.0) H 01/30/17 05:49 Chloride 85.2 mmol/L (98-107) L 01/30/17 05:49 Carbon Dioxide 35 mmol/L (22-30) H 01/30/17 05:49 Anion Gap 16 mmol/L 01/30/17 05:49 BUN 26 mg/dL (9-20) H 01/30/17 05:49 Creatinine 1.3 mg/dL (0.8-1.5) 01/30/17 05:49 Estimated GFR > 60 ml/min 01/30/17 05:49 BUN/Creatinine Ratio 20.00 % 01/30/17 05:49 Glucose 139 mg/dL (75-100) H 01/30/17 05:49 POC Glucose 176 (70-105) H 01/31/17 22:07 Calcium 8.7 mg/dL (8.4-10.2) 01/30/17 05:49 Total Creatine Kinase 205 units/L (55-170) H 01/30/17 13:48 CK-MB (CK-2) 3.4 ng/mL (0.0-4.0) 01/30/17 13:48 CK-MB (CK-2) Rel Index 1.6 (0-4) 01/30/17 13:48 Troponin T 0.133 ng/mL (0.00-0.029) H* 01/31/17 00:50 NT-Pro-B Natriuret Pep 1219 pg/mL (0-900) H 01/29/17 23:20 Triglycerides 62 mg/dL (2-149) 01/30/17 05:49 Cholesterol 97 mg/dL (50-199) 01/30/17 05:49 LDL Cholesterol Direct 34 mg/dL (50-130) L 01/30/17 05:49 HDL Cholesterol 51 mg/dL (40-59) 01/30/17 05:49 Cholesterol/HDL Ratio 1.90 % 01/30/17 05:49
--- NOTE | 2017-02-01 13:04 | Discharge Summary ---
Providers - Providers Date of Admission: 01/30/17 03:28 Attending physician: IAN SERRATO MD 01/30/17 12:23 Consult to Physician [CONS] Routine Consulting Provider: MIRACLE FIGUEREDO Reason For Exam: NSTEMI Place consult to:: [facility] Notified:: a service Phone number called:: [phone] Was contact made?: Yes If yes, spoke with:: ericka Time called:: 13:29 Primary care physician: [employer] Hospitalization Condition: Stable Hospital course: 68-year-old man with a past medical history of multiple strokes, dementia, COPD CHF who presented after jumping out of his bed and falling on his face and his fpc. Of note he had trauma imaging that did not show any fractures or internal injuries he just suffered from contusions of his forehead and scalp, he was found to have hyponatremia and hyperkalemia, these both improved with mild administration of fluids. Apart from that he had an uneventful hospital stay, he was continued on his chronic medical medications for treatment of his medical multiple medical problems, oral hypoglycemics and long-acting insulin when held while he was in the hospital as his blood glucose levels where at goal. Discharge diagnoses 1. Status post fall 2. Trauma 3. Chronic systolic CHF 4. COPD 5. Hyponatremia 6. Hyperkalemia. Disposition: DC/TX SNF W [facility] Time spent for discharge: 35 minutes Core Measure Documentation - Palliative Care Palliative Care/ Comfort Measures: Not Applicable - Core Measures Any of the following diagnoses?: heart failure - Heart Failure Discharge Requirements NETO/ARB for LVSD if EF <40%: Yes Beta karthik at discharge: Yes Exam - Physical Exam Narrative exam: General: Patient appears well in no distress HEENT: Multiple abrasions and contusions on his face forehead and scalp cardiac: S1-S2 heard lungs: clear to auscultation, abdomen: soft, nontender, nondistended bowel sounds positive extremities: no edema clubbing or cyanosis Skin: no rash or lesion Neuro: Moves all extremities, obeys commands, demented, oriented only to person - Constitutional Vitals: Temp Pulse Resp BP Pulse Ox 97.9 F 74 18 136/68 89 02/01/17 07:50 02/01/17 12:26 02/01/17 12:26 02/01/17 07:50 02/01/17 10:00 Plan Follow up with: BETY GUDINO MD [Primary Care Provider] - 7 Days
[2017-02-01 13:57] VITALS: BP 126/67
[2017-02-02] MEDS ORDERED: LEVAQUIN PO SCH (10:00)
== END 2017-02-01 16:40 | DRG 640 ==
LOC: ED 22:47 → 4A 01-30 03:28
PROVIDERS: ADMIT Internal Medicine; ATTEND Internal Medicine
PROC: 0HQ1XZZ Repair Face Skin, External Approach (ICD-10-PCS; principal; 2017-01-29)
DX: E87.1 Hypo-osmolality and hyponatremia (principal); I50.23 Acute on chronic systolic (congestive) heart failure; J44.1 Chronic obstructive pulmonary disease with (acute) exacerbation; I69.351 Hemiplegia and hemiparesis following cerebral infarction affecting right dominant side; E87.5 Hyperkalemia; F03.90 Unspecified dementia, unspecified severity, without behavioral disturbance, psychotic disturbance, mood disturbance, and anxiety; S00.83XA Contusion of other part of head, initial encounter; S00.03XA Contusion of scalp, initial encounter; E11.9 Type 2 diabetes mellitus without complications; F29 Unspecified psychosis not due to a substance or known physiological condition; I11.0 Hypertensive heart disease with heart failure; H54.8 Legal blindness, as defined in USA; M10.9 Gout, unspecified; R13.10 Dysphagia, unspecified; N40.0 Benign prostatic hyperplasia without lower urinary tract symptoms; W06.XXXA Fall from bed, initial encounter; Y93.89 Activity, other specified; Y92.89 Other specified places as the place of occurrence of the external cause; Y99.8 Other external cause status; Z79.4 Long term (current) use of insulin; Z79.84 Long term (current) use of oral hypoglycemic drugs; Z90.49 Acquired absence of other specified parts of digestive tract; Z99.81 Dependence on supplemental oxygen
CPT/HCPCS: 36415; 70450; 71010; 71260; 72125; 80048; 80061; 82550; 82553; 82962; 83880; 84484; 85025; 90471; 90714; 90715; 93005; 93010; 93306; 94640; 94760; 96374; 96375; J1644; J1815; J1940; J1956; J7512; Q9967

== ENCOUNTER 2017-03-10 21:04 | Inpatient (IN) | payer MEDICARE ==
[2017-03-10 22:01] LABS: Potassium 5.3 mmol/L (3.6-5.0)
[2017-03-10 22:05] LABS: Basophils % (Auto) 0.5 % (0.0-1.8); Eosinophils % (Auto) 2.1 % (0.0-4.3); Hematocrit 29.2 % (35.5-45.6); Hemoglobin 9.7 gm/dl (11.8-15.2); Mean Corpuscular HGB Conc 33 % (32-34); Mean Corpuscular Hemoglobin 29 pg (28-32); Mean Corpuscular Volume 86 fl (84-94); Red Cell Distribution Width 13.5 % (13.2-15.2)
[2017-03-10 22:06] LABS: Platelet Count 178 K/mm3 (140-440)
[2017-03-10] MEDS ORDERED: LASIX IV ONE (22:33)
[2017-03-10] MEDS ORDERED: LEVAQUIN 750MG/150ML 750 MG/150 ML BAG IV ONE (22:33)
[2017-03-10] MEDS ORDERED: ATROVENT IH ONE (22:35)
[2017-03-10] MEDS ORDERED: PROVENTIL IH ONE (22:35)
--- NOTE | 2017-03-10 23:05 | History and Physical Report ---
History of Present Illness History of present illness: 76 YO Male NHR([facility]), with COPD, HTN, CVA, DM, ARF, [place]en[place], BPH, presents to ED for evaluation. Pt was found to have difficulty breathing and hypoxic as per SNF nursing staff. Pt transported to ED for evaluation. Pt states that he has difficulty breathing, and is unable to describe onset and duration of symptoms. Pt at bedside and is unable to provide history. No reports of fever, chills, CP, Palpitations, NVD, leg swelling, calf pain, prolonged travel, individual/family history of DVT/PE, Productive cough, or recent ill contacts. Pt seen and evaluated in ED and found to be hypoxemic and in respiratory distress. Pt placed on NIPPV. Past History Past Medical History: COPD, diabetes, hypertension, renal failure, stroke Past Surgical History: cholecystectomy, Other (Back surgery, neck surgery) Social history: . denies: smoking, alcohol abuse, prescription drug abuse Family history: diabetes, hypertension Medications and Allergies Allergies Allergy/AdvReac Type Severity Reaction Status Date / Time No Known Allergies Allergy Verified 06/21/15 00:06 Home Medications Medication Instructions Recorded Confirmed Last Taken Type ALBUTEROL NEB's [Proventil 0.083% 2.5 mg TID PRN 01/30/17 01/30/17 Unknown History NEBS] ARIPiprazole [Aripiprazole] 2.5 mg PO DAILY 01/30/17 01/30/17 Unknown History Aspirin [Aspirin BABY CHEW TAB] 81 mg PO QDAY 01/30/17 01/30/17 Unknown History Celexa 10 mg DAILY 01/30/17 01/30/17 Unknown History Divalproex Sodium 125 mg BID 01/30/17 01/30/17 Unknown History Donepezil HCl 10 mg PO HS 01/30/17 01/30/17 Unknown History Ferrous Gluconate [Fergon 325 MG 324 mg PO DAILY 01/30/17 01/30/17 Unknown History tab] Finasteride [Proscar] 5 mg DAILY 01/30/17 01/30/17 Unknown History Imodium A-D 2 caplet Q1HR PRN MDD 8 TABS/24 01/30/17 01/30/17 Unknown History HOURS Insulin Regular, Human 3 units SC ACHS 01/30/17 01/30/17 Unknown History Ipratropium [Atrovent NEB] 0.5 mg Q8HR PRN 01/30/17 01/30/17 Unknown History Lactobacillus Acidophilus 1 tab BID 01/30/17 01/30/17 Unknown History [Acidophilus] Memantine HCl [Namenda Xr] 28 mg DAILY 01/30/17 01/30/17 Unknown History Metoprolol SUCCINATE ER TAB 25 mg DAILY 01/30/17 01/30/17 Unknown History Multivit with Calcium,Iron,Min 1 tab DAILY 01/30/17 01/30/17 Unknown History Prednisone 5 mg DAILY 01/30/17 01/30/17 Unknown History QUEtiapine [SEROquel] 25 mg PO HS 01/30/17 01/30/17 Unknown History RisperDAL 0.25 mg BID 01/30/17 01/30/17 Unknown History Tamsulosin 0.4 mg HS 01/30/17 01/30/17 Unknown History guaiFENesin 100 mg Q6HR PRN 01/30/17 01/30/17 Unknown History Active Meds: Active Medications Levofloxacin/Dextrose (Levaquin 750mg/150ml) 750 mg in 150 mls @ 100 mls/hr IV ONCE ONE Stop: 03/11/17 00:02 Review of Systems ROS unobtainable: due to mental status Exam - Constitutional Vitals: Temp Pulse Resp BP Pulse Ox 69 23 145/103 97 03/10/17 22:16 03/10/17 22:16 03/10/17 22:16 03/10/17 22:16 General appearance: Present: mild distress - EENT Eyes: Present: PERRL ENT: hearing intact, clear oral mucosa - Neck Neck: Present: supple, normal ROM - Respiratory Respiratory effort: labored Respiratory: bilateral: diminished - Cardiovascular Rhythm: regular Heart Sounds: Present: S1 & S2 - Extremities Extremities: no ischemia, pulses symmetrical, No edema Extremity abnormal: edema Peripheral Pulses: within normal limits - Abdominal General gastrointestinal: Present: soft, non-tender, non-distended, normal bowel sounds Male genitourinary: Present: normal - Integumentary Integumentary: Present: clear, warm, dry - Musculoskeletal Musculoskeletal: generalized weakness - Psychiatric Psychiatric: no intact judgment & insight, no memory intact - Neurologic Neurologic: moves all extremities Results - Labs CBC & Chem 7: 03/10/17 21:30 03/10/17 21:30 Labs: Abnormal lab results 03/10/17 03/10/17 Range/Units 21:30 21:30 RBC 3.40 L (3.65-5.03) M/mm3 Hgb 9.7 L (11.8-15.2) gm/dl Hct 29.2 L (35.5-45.6) % [place] % (Auto) 9.1 H (0.0-7.3) % Sodium 125 L (137-145) mmol/L Potassium 5.3 H (3.6-5.0) mmol/L Chloride 82.0 L (98-107) mmol/L Carbon Dioxide 31 H (22-30) mmol/L BUN 28 H (9-20) mg/dL Glucose 187 H (75-100) mg/dL Troponin T 0.146 H* (0.00-0.029) ng/mL LDL Cholesterol Direct 44 L (50-130) mg/dL HDL Cholesterol 62 H (40-59) mg/dL Assessment and Plan - Patient Problems (1) Acute respiratory failure with hypoxemia Current Visit: Yes Status: Acute Plan to address problem: Supplemental oxygen, nebs, aspiration precautions, NIPPV, ABG, supportive care. (2) NSTEMI (non-ST elevated myocardial infarction) Current Visit: Yes Status: Acute Plan to address problem: Serial cardiac enzymes, ekg, telmetry, cardiology consulted, d dimer (3) CHF (congestive heart failure) Current Visit: Yes Status: Acute Qualifiers: Congestive heart failure type: C Congestive heart failure chronicity: unspecified congestive heart failure chronicity Plan to address problem: CHF protocol: serial cardiac enzymes, ekg, telemetry, fluid restriction, afterload reduction, cardiology consulted, (4) COPD (chronic obstructive pulmonary disease) Current Visit: Yes Status: Acute Qualifiers: COPD type: C Chronic bronchitis type: C Emphysema type: E Plan to address problem: supplemental oxygen, nebs, aspiration precautions, incentive spirometry, supportive care, (5) Hyponatremia syndrome Current Visit: Yes Status: Acute Plan to address problem: IVF replacement, supportive care. (6) Hyperkalemia Current Visit: Yes Status: Acute Plan to address problem: repeat bmp, (7) DVT prophylaxis Current Visit: Yes Status: Acute
--- NOTE | 2017-03-10 23:22 | Emergency Department Report ---
ED General Adult HPI - General Chief complaint: Dyspnea/Respdistress Stated complaint: DIFFICULTY BREATHING Time Seen by Provider: 03/10/17 22:19 Source: patient, EMS (ems notes not available at time of chart dictation), RN notes reviewed, old records reviewed Mode of arrival: Ambulatory Limitations: Physical Limitation, Other (patient is a poor historian) - History of Present Illness Initial comments: This is a 76-year-old male. He is previously unknown to me. Past medical history includes multiple strokes, dementia, CHF, COPD. Patient recently admitted for elective electric razor. He presents from a local skilled nursing, [place], shortness of breath. Primary care physician, Dr. Ashwin Rodriguez. Patient is unable to describe exacerbating or relieving factors. Patient was found to be hypoxic upon arrival to the ER. The enclosed paperwork from the skilled nursing indicates that the patient was made DO NOT RESUSCITATE, DO NOT INTUBATE. Laboratory studies indicated hyponatremia, most likely hypervolemic, x-ray of the chest nonspecific, suggests CHF, possible COPD, possible infiltrate. Of note, the patient had a similar chest x-ray during a previous admission. A CT scan of the chest was performed on 01/30/2017, which demonstrated pleural effusions, pulmonary emphysema, no obvious pulmonary emboli, pulmonary hypertension. The patient also had an echocardiogram which stems triggered an EF of 55-60%. I secondary to dementia, the patient is unable to describe the qualitative nature of his symptoms, nor can he describe exacerbating or relieving factors, nor can he described duration of symptoms. In any event, the patient appears quite comes want BiPAP therapy, and will be admitted to the medical service for further evaluation and management. Given physical exam findings, chest x-ray findings, dementia, fall risk, I think pulmonary embolus is unlikely. Furthermore, I believe that given the patient's advanced dementia, known history of multiple falls, the risks of anticoagulation Certainly outweigh the benefits. the case is presented to the Hospital physician, Dr. Che, who graciously accepts the patient to his service. -: unknown Quality: other (per hpi) Consistency: other (per hpi) Improves with: other (per hpi) Worsens with: other (per hpi) Associated Symptoms: shortness of breath - Related Data Home Medications Medication Instructions Recorded Confirmed Last Taken ALBUTEROL NEB's [Proventil 0.083% 2.5 mg TID PRN 01/30/17 03/11/17 1 Day Ago NEBS] ARIPiprazole [Aripiprazole] 2.5 mg PO DAILY 01/30/17 03/11/17 1 Day Ago Aspirin [Aspirin BABY CHEW TAB] 81 mg PO QDAY 01/30/17 03/11/17 1 Day Ago Celexa 10 mg DAILY 01/30/17 03/11/17 1 Day Ago Divalproex Sodium 125 mg BID 01/30/17 03/11/17 1 Day Ago Donepezil HCl 10 mg PO HS 01/30/17 03/11/17 1 Day Ago Ferrous Gluconate [Fergon 325 MG 324 mg PO DAILY 01/30/17 03/11/17 1 Day Ago tab] Finasteride [Proscar] 5 mg DAILY 01/30/17 03/11/17 1 Day Ago Imodium A-D 2 caplet Q1HR PRN MDD 8 TABS/24 01/30/17 03/11/17 1 Day Ago HOURS Insulin Regular, Human 3 units SC ACHS 01/30/17 03/11/17 1 Day Ago Ipratropium [Atrovent NEB] 0.5 mg Q8HR PRN 01/30/17 03/11/17 1 Day Ago Lactobacillus Acidophilus 1 tab BID 01/30/17 03/11/17 1 Day Ago [Acidophilus] Memantine HCl [Namenda Xr] 28 mg DAILY 01/30/17 03/11/17 1 Day Ago Metoprolol Succinate 25 mg PO DAILY #0 01/30/17 03/11/17 1 Day Ago Multivit-Min/FA/Calcium/Vit K1 [Hm 1 each PO DAILY #0 01/30/17 03/11/17 1 Day Ago One Daily Women's 50+] Prednisone [predniSONE (Praveena) ER 5 mg PO QDAY #0 01/30/17 03/11/17 1 Day Ago TAB] QUEtiapine [SEROquel] 25 mg PO HS 01/30/17 03/11/17 1 Day Ago Tamsulosin [Flomax] 0.4 mg PO QDAY #0 01/30/17 03/11/17 1 Day Ago guaiFENesin 100 mg Q6HR PRN 01/30/17 03/11/17 1 Day Ago risperiDONE [RisperDAL] 0.25 mg PO BID #0 01/30/17 03/11/17 1 Day Ago Allergies Allergy/AdvReac Type Severity Reaction Status Date / Time No Known Allergies Allergy Verified 06/21/15 00:06 ED Review of Systems ROS: Stated complaint: DIFFICULTY BREATHING Other details as noted in HPI Comment: Unobtainable due to pts medical conditions ED Past Medical Hx - Past Medical History Previous Medical History?: Yes Hx Hypertension: Yes Hx CVA: Yes (2009) Hx Heart Attack/AMI: No Hx Congestive Heart Failure: Yes Hx Diabetes: Yes Hx Deep Vein Thrombosis: No Hx Pulmonary Embolism: No Hx Liver Disease: No Hx Renal Disease: Yes Hx Sickle Cell Disease: No Hx Arthritis: Yes Hx Seizures: No Hx Kidney Stones: No Hx Asthma: No Hx COPD: Yes Hx Tuberculosis: No Hx Dementia: Yes Hx HIV: No - Surgical History Past Surgical History?: Yes Hx Coronary Stent: No Hx Open Heart Surgery: No Hx Pacemaker: No Hx Internal Defibrillator: No Hx Cholecystectomy: Yes Hx Appendectomy: No Hx Breast Surgery: No Additional Surgical History: back surgery 1992, neck surgery 1996, gall bladder drain placement april 2015. - Social History Smoking Status: Unknown if ever smoked Substance Use Type: None - Medications Home Medications: Home Medications Medication Instructions Recorded Confirmed Last Taken Type ALBUTEROL NEB's [Proventil 0.083% 2.5 mg TID PRN 01/30/17 03/11/17 1 Day Ago History NEBS] ARIPiprazole [Aripiprazole] 2.5 mg PO DAILY 01/30/17 03/11/17 1 Day Ago History Aspirin [Aspirin BABY CHEW TAB] 81 mg PO QDAY 01/30/17 03/11/17 1 Day Ago History Celexa 10 mg DAILY 01/30/17 03/11/17 1 Day Ago History Divalproex Sodium 125 mg BID 01/30/17 03/11/17 1 Day Ago History Donepezil HCl 10 mg PO HS 01/30/17 03/11/17 1 Day Ago History Ferrous Gluconate [Fergon 325 MG 324 mg PO DAILY 01/30/17 03/11/17 1 Day Ago History tab] Finasteride [Proscar] 5 mg DAILY 01/30/17 03/11/17 1 Day Ago History Imodium A-D 2 caplet Q1HR PRN MDD 8 TABS/24 01/30/17 03/11/17 1 Day Ago History HOURS Insulin Regular, Human 3 units SC ACHS 01/30/17 03/11/17 1 Day Ago History Ipratropium [Atrovent NEB] 0.5 mg Q8HR PRN 01/30/17 03/11/17 1 Day Ago History Lactobacillus Acidophilus 1 tab BID 01/30/17 03/11/17 1 Day Ago History [Acidophilus] Memantine HCl [Namenda Xr] 28 mg DAILY 01/30/17 03/11/17 1 Day Ago History Metoprolol Succinate 25 mg PO DAILY #0 01/30/17 03/11/17 1 Day Ago History Multivit-Min/FA/Calcium/Vit K1 [Hm 1 each PO DAILY #0 01/30/17 03/11/17 1 Day Ago History One Daily Women's 50+] Prednisone [predniSONE (Praveena) ER 5 mg PO QDAY #0 01/30/17 03/11/17 1 Day Ago History TAB] QUEtiapine [SEROquel] 25 mg PO HS 01/30/17 03/11/17 1 Day Ago History Tamsulosin [Flomax] 0.4 mg PO QDAY #0 01/30/17 03/11/17 1 Day Ago History guaiFENesin 100 mg Q6HR PRN 01/30/17 03/11/17 1 Day Ago History risperiDONE [RisperDAL] 0.25 mg PO BID #0 01/30/17 03/11/17 1 Day Ago History ED Physical Exam - General Limitations: Other (patient is poor historian) General appearance: alert, in no apparent distress - Head Head exam: Present: atraumatic, normocephalic - Eye Eye exam: Present: normal appearance - ENT ENT exam: Present: mucous membranes dry - Neck Neck exam: Present: normal inspection, full ROM. Absent: tenderness, meningismus - Respiratory Respiratory exam: Present: respiratory distress, rales, rhonchi - Cardiovascular Cardiovascular Exam: Present: regular rate, normal rhythm, normal heart sounds. Absent: bradycardia, tachycardia, irregular rhythm, systolic murmur, diastolic murmur, rubs, gallop - GI/Abdominal GI/Abdominal exam: Present: soft, normal bowel sounds. Absent: distended, tenderness, guarding, rebound, rigid, pulsatile mass - Rectal Rectal exam: Present: deferred - Extremities Exam Extremities exam: Present: normal inspection, normal capillary refill, pedal edema. Absent: calf tenderness - Back Exam Back exam: Present: normal inspection, full ROM. Absent: tenderness, CVA tenderness (R), CVA tenderness (L), muscle spasm, paraspinal tenderness, vertebral tenderness - Neurological Exam Neurological exam: Present: alert (patient is alert to name. Follows commands.) , other (patient answers some questions. There is no facial droop. Extraocular movements are intact. Sensation intact in upper and lower extremities bilaterally. 5/5 strength bilateral upper and lower extremity's.) - Psychiatric Psychiatric exam: Present: normal affect, normal mood - Skin Skin exam: Present: warm, dry, intact, normal color. Absent: rash ED Course Vital Signs 03/10/17 03/10/17 03/10/17 21:08 21:30 22:00 Temperature Pulse Rate 71 63 69 Pulse Rate [ Bilateral Throughout] Respiratory 20 18 Rate Respiratory Rate [Bilateral Throughout] Blood Pressure 131/64 Blood Pressure 122/65 134/79 [Right] O2 Sat by Pulse 94 98 98 Oximetry 03/10/17 03/10/17 03/10/17 22:16 22:30 22:48 Temperature Pulse Rate 69 70 67 Pulse Rate [ Bilateral Throughout] Respiratory 23 18 17 Rate Respiratory Rate [Bilateral Throughout] Blood Pressure 145/103 Blood Pressure 136/70 [Right] O2 Sat by Pulse 97 98 99 Oximetry 03/10/17 03/10/17 03/10/17 23:01 23:07 23:23 Temperature Pulse Rate 72 66 Pulse Rate [ 66 Bilateral Throughout] Respiratory 19 15 Rate Respiratory 19 Rate [Bilateral Throughout] Blood Pressure 133/66 133/66 Blood Pressure [Right] O2 Sat by Pulse 97 100 Oximetry 03/10/17 03/10/17 03/11/17 23:31 23:45 00:01 Temperature Pulse Rate 69 71 Pulse Rate [ 69 Bilateral Throughout] Respiratory 17 13 Rate Respiratory 18 Rate [Bilateral Throughout] Blood Pressure 135/69 129/67 Blood Pressure [Right] O2 Sat by Pulse 98 100 Oximetry 03/11/17 03/11/17 03/11/17 00:18 00:31 01:01 Temperature 98.3 F Pulse Rate 76 70 Pulse Rate [ Bilateral Throughout] Respiratory 18 14 Rate Respiratory Rate [Bilateral Throughout] Blood Pressure 130/75 128/78 Blood Pressure [Right] O2 Sat by Pulse 97 100 Oximetry 03/11/17 03/11/17 03/11/17 01:31 02:01 02:31 Temperature Pulse Rate 70 69 67 Pulse Rate [ Bilateral Throughout] Respiratory 18 15 16 Rate Respiratory Rate [Bilateral Throughout] Blood Pressure 146/51 150/67 145/94 Blood Pressure [Right] O2 Sat by Pulse 99 100 100 Oximetry - Reevaluation(s) Reevaluation #1: 03/10/17 23:23 differential diagnosis: COPD exacerbation, pulmonary hypertension , pneumonia, CHF, multifactorial respiratory distress, hypervolemic hyponatremia , chronic troponin leak Assessment and plan: 76-year-old male with known history of structural lung disease, presenting with probable multifactorial respiratory failure, most likely CHF, COPD, possible pneumonia. He requires BiPAP therapy. She does not require intubation at this time. Patient chronically has elevated troponin. He indicates he is chest pain-free at this time. He will be given albuterol, Atrovent, steroids, antibiotics, diuretics, aspirin therapy. Case is presented to the Hospital physician,, Dr. Che, who accepts the patient. ED Medical Decision Making - Lab Data Result diagrams: 03/10/17 21:30 03/10/17 21:30 Vital Signs 03/10/17 03/10/17 03/10/17 21:08 21:30 22:00 Pulse Rate 71 63 69 Respiratory 20 18 Rate Blood Pressure 131/64 Blood Pressure 122/65 134/79 [Right] O2 Sat by Pulse 94 98 98 Oximetry 03/10/17 03/10/17 03/10/17 22:16 22:30 22:48 Pulse Rate 69 70 67 Respiratory 23 18 17 Rate Blood Pressure 145/103 Blood Pressure 136/70 [Right] O2 Sat by Pulse 97 98 99 Oximetry 03/10/17 23:01 Pulse Rate 72 Respiratory 19 Rate Blood Pressure 133/66 Blood Pressure [Right] O2 Sat by Pulse 97 Oximetry Lab Results 03/10/17 03/10/17 03/10/17 Range/Units 21:30 21:30 22:43 WBC 6.0 (4.5-11.0) K/mm3 RBC 3.40 L (3.65-5.03) M/mm3 Hgb 9.7 L (11.8-15.2) gm/dl Hct 29.2 L (35.5-45.6) % MCV 86 (84-94) fl MCH 29 (28-32) pg MCHC 33 (32-34) % RDW 13.5 (13.2-15.2) % Plt Count 178 (140-440) K/mm3 Lymph % (Auto) 33.1 (13.4-35.0) % [place] % (Auto) 9.1 H (0.0-7.3) % Eos % (Auto) 2.1 (0.0-4.3) % Baso % (Auto) 0.5 (0.0-1.8) % Lymph # 2.0 (1.2-5.4) K/mm3 [place] # 0.5 (0.0-0.8) K/mm3 Eos # 0.1 (0.0-0.4) K/mm3 Baso # 0.0 (0.0-0.1) K/mm3 Seg Neutrophils % 55.2 (40.0-70.0) % Seg Neutrophils # 3.3 (1.8-7.7) K/mm3 Sodium 125 L (137-145) mmol/L Potassium 5.3 H (3.6-5.0) mmol/L Chloride 82.0 L (98-107) mmol/L Carbon Dioxide 31 H (22-30) mmol/L Anion Gap 17 mmol/L BUN 28 H (9-20) mg/dL Creatinine 1.4 (0.8-1.5) mg/dL Estimated GFR 59 ml/min BUN/Creatinine Ratio 20.00 % Glucose 187 H (75-100) mg/dL Calcium 9.0 (8.4-10.2) mg/dL Magnesium 2.00 (1.7-2.3) mg/dL Troponin T 0.146 H* (0.00-0.029) ng/mL NT-Pro-B Natriuret Pep 3890 H (0-900) pg/mL Triglycerides 77 (2-149) mg/dL Cholesterol 121 (50-199) mg/dL LDL Cholesterol Direct 44 L (50-130) mg/dL HDL Cholesterol 62 H (40-59) mg/dL Cholesterol/HDL Ratio 1.95 % - EKG Data -: EKG Interpreted by [facility] EKG shows normal: sinus rhythm Rate: normal - EKG Data 03/10/17 23:25 Normal sinus, 74 bpm, left axis deviation, motion artifact, borderline right bundle branch block, not morphologically consistent with STEMI, appears unchanged from prior EKG from 01/30/2017. - Radiology Data Radiology results: pending, image reviewed interpreted by me: X-ray the chest is rotated, persistent emphysematous changes, bilateral hilar atelectasis versus infiltrate, persistent pleural effusions, possible infiltrate Critical Care Time: Yes Critical care time in (mins) excluding proc time.: 35 Critical care attestation.: If time is entered above; I have spent that time in minutes in the direct care of this critically ill patient, excluding procedure time. Critical Care Time: Critical care time includes multiple bedside evaluations, interpretation of laboratory studies, radiology studies, sometimes Managing a patient with multifactorial respiratory failure requiring positive pressure ventilation. This is not include procedure time. ED Disposition Clinical Impression: COPD exacerbation, Elevated troponin I level CHF (congestive heart failure) Qualifiers: Congestive heart failure chronicity: unspecified congestive heart failure chronicity Disposition: OP ADMITTED IP TO THIS HOSP Is pt being admited?: Yes Does the pt Need Aspirin: Yes Condition: Fair
--- NOTE | 2017-03-10 23:25 | XRay Report ---
FINAL REPORT PROCEDURE: XR CHEST 1V AP TECHNIQUE: Chest radiograph anteroposterior view. CPT 38257 HISTORY: Shortness of breath COMPARISON: 01/29/2017 FINDINGS: This study is grossly limited due to suboptimal inspiration and suboptimal positioning. Patient is rotated to the right Heart: Cardiac size cannot be determined.. Mediastinum/Vessels: Normal. Lungs/Pleural space: Visualized portions of bilateral lungs are free of any confluent infiltrates or mass lesions. Pleural spaces are clear. Bony thorax: No acute osseous abnormality. Life support devices: None. IMPRESSION: Grossly limited study due to suboptimal positioning and suboptimal inspiration. No obvious acute pulmonary process. A two view chest study is recommended whenever the patient's condition permits.
[2017-03-10] MEDS ORDERED: ASPIRIN PR ONE (23:27)
[2017-03-11 00:03] LABS: Bilirubin,Urine NEG (Negative); Blood,Urine NEG (Negative); Ketones,Urine NEG (Negative); Leukocyte Esterase,Urine NEG (Negative); Nitrite,Urine NEG (Negative); Urobilinogen,Urine < 2.0 mg/dL (<2.0); WBC,Urine < 1.0 /HPF (0.0-6.0)
[2017-03-11] MEDS ORDERED: TYLENOL PO PRN (01:12)
[2017-03-11] MEDS ORDERED: ZOFRAN IV PRN (01:12)
[2017-03-11] MEDS ORDERED: DUONEB 0.5 MG-3 MG/3 ML SOLN IH PRN (01:12)
[2017-03-11] MEDS ORDERED: SODIUM CHLORIDE FLUSH SYRINGE 10 ML IV PRN (01:12)
[2017-03-11] MEDS ORDERED: MILK OF MAGNESIA PO PRN (01:12)
[2017-03-11] MEDS ORDERED: DULCOLAX PR PRN (01:12)
[2017-03-11] MEDS ORDERED: PROVENTIL IH PRN (01:28)
[2017-03-11] MEDS ORDERED: LOVENOX SUB-Q ONE (02:46)
[2017-03-11] MEDS: LOVENOX SUB-Q SCH ×3 (02:58→15:48)
[2017-03-11] MEDS ORDERED: HEPARIN SUB-Q SCH (06:00)
[2017-03-11] MEDS ORDERED: INSULIN REGULAR SC SCH (07:30)
[2017-03-11] MEDS ORDERED: [UNRECOGNIZED DRUG - OTHER] SC SCH (07:30)
[2017-03-11 07:32] LABS: Creatine Kinase MB 3.6 ng/mL (0.0-4.0)
--- NOTE | 2017-03-11 07:48 | Admit Criteria Form ---
Admission Criteria Documentation: RESPIRATORY FAILURE GRG Clinical Indications for Admission to Inpatient Care (Place 'X' for any and all applicable criteria): Hospital admission is needed for appropriate care of the patient because of acute respiratory failure or insufficiency as indicated by ANY ONE of the following(1)(2)(3)(4)(5)(6)(7)(8): [X]I. Mechanical ventilation needed (acute invasive or noninvasive) [ ]II. Severe ventilation deficit as indicated by ANY ONE of the following (9) [ ]a) Respiratory acidosis (pH less than 7.32 and partial pressure of carbon dioxide greater than 40 mm Hg (5.3 kPa)) [ ]b) Partial pressure of carbon dioxide greater than 44 mm Hg (5.9 kPa ) (new) [ ]c) Airflow measurements less than 25% of predicted (eg, peak expiratory flow rate less than 100 L/minute) [ ]d) Forced vital capacity less than 15 mL/kg of ideal body weight, or 50% decrease in vital capacity from baseline [ ]III. Noncardiac pulmonary edema not resolving with rapid emergency treatment (8) [ ]IV. Severe respiratory distress as indicated by ANY ONE of the following: [ ]a) Severe tachypnea (respiratory rate greater than 30, greater than 45 for 6-month-old, greater than 60 for ) [ ]b) Severe hypoxemia (partial pressure of oxygen less than 50 mm Hg ( 6.7 kPa) on greater than 50% oxygen or partial pressure of oxygen to FIO2 ratio less than 200) [ ]c) Mental status deterioration from respiratory disease [ ]V. Airway obstruction or inadequate protection [A](10)(11) The original [employer] content created by [employer] has been revised. The portions of the content which have been revised are identified through the use of italic text or in bold, and [employer] has neither reviewed nor approved the modified material. All other unmodified content is copyright [employer]. Please see references footnoted in the original [employer] edition 2016 Admission Criteria Met: Yes
--- NOTE | 2017-03-11 09:38 | XRay Report ---
ROUTINE CHEST, TWO VIEWS: HISTORY: Followup CHF. Mild cardiomegaly, mild vascular congestion and small pleural effusions are stable since yesterday's exam at 2157 hrs. No consolidation or pneumothorax. IMPRESSION: Mild CHF.
--- NOTE | 2017-03-11 09:48 | Consultation ---
History of Present Illness Consult date: 03/11/17 Requesting physician: VALERIA HOLMAN Consult reason: elevated troponin History of present illness: The pt is a 76-year-old male [facility]) with a past medical history significant for HF, COPD, CVA, dementia, diabetes, hypertension, and renal disease. He presented with c/o SOB and orthopnea x several days [employer]. Pt is a poor historian. Per the records, pt was found to have difficulty breathing and hypoxia as per SNF nursing staff. Pt transported to ED for evaluation. Pt denies chest pain, palpitations, n/v, diaphoresis, dizziness, or syncope. CXR showes mild vascular congestion and small effusions; pro-BNP 3890; troponins minimally elevated and unchanged from baseline when compared to prior admissions ; CK/MB negative for AMI. Echo done 01/30/2017 showed EF 55-60%, mild LVH. Past History Past Medical History: COPD, diabetes, hypertension, renal failure, stroke Past Surgical History: cholecystectomy, Other (Back surgery, neck surgery) Social history: . denies: smoking, alcohol abuse, prescription drug abuse Family history: diabetes, hypertension Medications and Allergies Allergies Allergy/AdvReac Type Severity Reaction Status Date / Time No Known Allergies Allergy Verified 06/21/15 00:06 Home Medications Medication Instructions Recorded Confirmed Last Taken Type ALBUTEROL NEB's [Proventil 0.083% 2.5 mg TID PRN 01/30/17 01/30/17 Unknown History NEBS] ARIPiprazole [Aripiprazole] 2.5 mg PO DAILY 01/30/17 01/30/17 Unknown History Aspirin [Aspirin BABY CHEW TAB] 81 mg PO QDAY 01/30/17 01/30/17 Unknown History Celexa 10 mg DAILY 01/30/17 01/30/17 Unknown History Divalproex Sodium 125 mg BID 01/30/17 01/30/17 Unknown History Donepezil HCl 10 mg PO HS 01/30/17 01/30/17 Unknown History Ferrous Gluconate [Fergon 325 MG 324 mg PO DAILY 01/30/17 01/30/17 Unknown History tab] Finasteride [Proscar] 5 mg DAILY 01/30/17 01/30/17 Unknown History Imodium A-D 2 caplet Q1HR PRN MDD 8 TABS/24 01/30/17 01/30/17 Unknown History HOURS Insulin Regular, Human 3 units SC ACHS 01/30/17 01/30/17 Unknown History Ipratropium [Atrovent NEB] 0.5 mg Q8HR PRN 01/30/17 01/30/17 Unknown History Lactobacillus Acidophilus 1 tab BID 01/30/17 01/30/17 Unknown History [Acidophilus] Memantine HCl [Namenda Xr] 28 mg DAILY 01/30/17 01/30/17 Unknown History Metoprolol SUCCINATE ER TAB 25 mg DAILY 01/30/17 01/30/17 Unknown History Multivit with Calcium,Iron,Min 1 tab DAILY 01/30/17 01/30/17 Unknown History Prednisone 5 mg DAILY 01/30/17 01/30/17 Unknown History QUEtiapine [SEROquel] 25 mg PO HS 01/30/17 01/30/17 Unknown History RisperDAL 0.25 mg BID 01/30/17 01/30/17 Unknown History Tamsulosin 0.4 mg HS 01/30/17 01/30/17 Unknown History guaiFENesin 100 mg Q6HR PRN 01/30/17 01/30/17 Unknown History Active Meds: Active Medications Acetaminophen (Tylenol) 650 mg PO Q4H PRN PRN Reason: Pain MILD(1-3)/Fever >100.5/DAVILA Albuterol (Proventil) 2.5 mg IH Q6HRT PRN PRN Reason: Shortness Of Breath Aripiprazole (Abilify) 2.5 mg PO DAILY [facility] Aspirin (Baby Aspirin) 81 mg PO QDAY [facility] Bisacodyl (Dulcolax) 10 mg AR QDAY PRN PRN Reason: Constipation unrelieved by MOM Citalopram Hydrobromide (Celexa) 10 mg PO DAILY [facility] Divalproex Sodium (Depakote Dr) 125 mg PO BID [facility] Enoxaparin Sodium (Lovenox) 90 mg SUB-Q Q12HR [facility] Last Admin: 03/11/17 02:58 Dose: 90 mg Ferrous Gluconate (Fergon) 324 mg PO DAILY [facility] Finasteride (Proscar) 5 mg PO DAILY [facility] Insulin Human Regular (Novolin R) 3 units SUB-Q ACHS [facility] Lactobacillus Rhamnosus (Culturelle) 1 each PO BID [facility] Magnesium Hydroxide (Milk Of Magnesia) 30 ml PO Q4H PRN PRN Reason: Constipation Ondansetron HCl (Zofran) 4 mg IV Q8H PRN PRN Reason: N/V unrelieved by Reglan Quetiapine Fumarate (Seroquel) 25 mg PO HS [facility] Risperidone (Risperdal) 0.25 mg PO BID [facility] Sodium Chloride (Sodium Chloride Flush Syringe 10 Ml) 10 ml IV PRN PRN PRN Reason: LINE FLUSH Tamsulosin HCl (Flomax) 0.4 mg PO HS [facility] Review of Systems All systems: negative Cardiovascular: orthopnea, shortness of breath, no chest pain Respiratory: shortness of breath Physical Examination Vital Signs Pulse BP Pulse Ox 71 131/64 94 03/10/17 21:08 03/10/17 21:08 03/10/17 21:08 General appearance: no acute distress HEENT: Positive: PERRL, Normocephaly, Mucus Membranes Moist Neck: Positive: neck supple, trachea midline Cardiac: Positive: Reg Rate and Rhythm, S1/S2 Lungs: Positive: Rhonchi, Oxygen Neuro: Positive: Grossly Intact, Weakness (left-sided d/t CVA) Abdomen: Positive: Soft, Active Bowel Sounds. Negative: Tender Skin: Positive: Clear. Negative: Rash Musculoskeletal: No Fluid Collection, No Pain, Normal Range of Motion Extremities: Present: upper extr. pulses, lower extr. pulses. Absent: edema Results 03/10/17 21:30 03/10/17 21:30 Cardiac Enzymes 03/11/17 Range/Units 06:19 CK-MB (CK-2) 3.6 (0.0-4.0) ng/mL - Imaging and Cardiology Echo: report reviewed EKG: report reviewed, image reviewed EKG interpretations - Telemetry EKG Rhythm: Sinus Rhythm - EKG Sinus rhythms and dysrhythmias: sinus rhythm Supraventricular dysrhythmia: atrial premature complexe AV and intraventricular conduction: right bundle branch block Assessment and Plan Assessment: Acute diastolic HF Elevated troponin - ECG with NAF; pt denies chest pain; normal CK and MB noted; lipid panel WNL. HTN DM COPD Anemia H/o CVA Dementia Plan: Minimally elevated troponins are flat, unchanged from prior admissions, and in setting of normal CK and MB. Do not suspect ACS at this time. D/c ACS Lovenox dosage and convert to DVT prophylaxis dosage. Cont ASA. Initiate lopressor, 12.5mg PO BID. Titrate as tolerated. Cont with gentle diuresis. Repeat BMP in AM. No indication for any further cardiac testing at this time. Will continue with conservative management given age, dementia, and multiple co-morbidities. The patient has been seen in conjunction with Dr. Lind who agrees with the assessment and plan of care.
[2017-03-11] MEDS: RisperDAL PO SCH ×2 (10:42→20:59)
[2017-03-11] MEDS: BABY ASPIRIN PO SCH (10:42)
[2017-03-11] MEDS: ABILIFY PO SCH (10:42)
[2017-03-11] MEDS: PROSCAR PO SCH (10:42)
[2017-03-11] MEDS: LASIX IV SCH (10:43)
[2017-03-11] MEDS: celeXA PO SCH (10:43)
[2017-03-11] MEDS: FERGON PO SCH (12:54)
[2017-03-11] MEDS: CULTURELLE PO SCH ×2 (14:01→20:59)
--- NOTE | 2017-03-11 14:14 | Progress Note ---
Assessment and Plan Assessment and plan: Patient is a 76 yo man from [facility] w/ history of Diastolic heart failure, Echo done 01/30/2017 showed EF 55-60%, mild LVH, BPH, COPD, CVA, Dementia, DM2 and HTN who presents with sob and hypoxia. He is DNR per records. CXR shows mild chf; troponin slightly elevated but unchanged from baseline. -Acute on chronic decompensated diastolic heart failure: Gentle diuresis due to moderate hyponatremia -Chronic hyponatremia, ?chf related vs siadh: Continue to monitor -Hyperkalemia, mild: Continue to monitor, creatinine 1.4 estimated GFR ~60 -Type II [place]: followed by cardiology, and conservative management -DVT prophylaxis: Subcutaneous Lovenox DO NOT RESUSCITATE Anticipate discharge in 2-3 days History Interval history: Patient seen and examined. Follow up on current diagnosis. Overnight uneventful. No cp, sob, n/v or severe headaches. Imaging, old records, testing, labs, nursing notes reviewed. Hospitalist Physical - Physical exam Narrative exam: GEN: WDWN, NAD, AWAKE, ALERT, ORIENTATED x 1 CVS: RRR, NORMAL S1S2 LUNGS/CHEST: Bilateral crackles, NORMAL CHEST EXPANSION B, GOOD AIR ENTRY B ABD: SOFT NTND, GBS, NO REBOUND OR GUARDING NEURO: CN 2-12 GROSSLY INTACT, NO new FOCAL DEFICITS PSY: CALM and confused - Constitutional Vitals: Temp Pulse Resp BP Pulse Ox 98.1 F 69 18 142/86 100 03/11/17 10:02 03/11/17 10:02 03/11/17 10:02 03/11/17 10:02 03/11/17 10:02 General appearance: Present: no acute distress Results - Labs CBC & Chem 7: 03/10/17 21:30 03/10/17 21:30 Labs: Laboratory Last Values WBC 6.0 K/mm3 (4.5-11.0) 03/10/17 21:30 RBC 3.40 M/mm3 (3.65-5.03) L 03/10/17 21:30 Hgb 9.7 gm/dl (11.8-15.2) L 03/10/17 21:30 Hct 29.2 % (35.5-45.6) L 03/10/17 21:30 MCV 86 fl (84-94) 03/10/17 21:30 MCH 29 pg (28-32) 03/10/17 21:30 MCHC 33 % (32-34) 03/10/17 21:30 RDW 13.5 % (13.2-15.2) 03/10/17 21:30 Plt Count 178 K/mm3 (140-440) 03/10/17 21:30 Lymph % (Auto) 33.1 % (13.4-35.0) 03/10/17 21:30 [place] % (Auto) 9.1 % (0.0-7.3) H 03/10/17 21:30 Eos % (Auto) 2.1 % (0.0-4.3) 03/10/17 21:30 Baso % (Auto) 0.5 % (0.0-1.8) 03/10/17 21:30 Lymph # 2.0 K/mm3 (1.2-5.4) 03/10/17 21:30 [place] # 0.5 K/mm3 (0.0-0.8) 03/10/17 21:30 Eos # 0.1 K/mm3 (0.0-0.4) 03/10/17 21:30 Baso # 0.0 K/mm3 (0.0-0.1) 03/10/17 21:30 Seg Neutrophils % 55.2 % (40.0-70.0) 03/10/17 21:30 Seg Neutrophils # 3.3 K/mm3 (1.8-7.7) 03/10/17 21:30 D-Dimer 184.28 ng/mlDDU (0-234) 03/11/17 06:19 Sodium 125 mmol/L (137-145) L 03/10/17 21:30 Potassium 5.3 mmol/L (3.6-5.0) H 03/10/17 21:30 Chloride 82.0 mmol/L (98-107) L 03/10/17 21:30 Carbon Dioxide 31 mmol/L (22-30) H 03/10/17 21:30 Anion Gap 17 mmol/L 03/10/17 21:30 BUN 28 mg/dL (9-20) H 03/10/17 21:30 Creatinine 1.4 mg/dL (0.8-1.5) 03/10/17 21:30 Estimated GFR 59 ml/min 03/10/17 21:30 BUN/Creatinine Ratio 20.00 % 03/10/17 21:30 Glucose 187 mg/dL (75-100) H 03/10/17 21:30 POC Glucose 151 (70-105) H 03/11/17 12:18 Calcium 9.0 mg/dL (8.4-10.2) 03/10/17 21:30 Magnesium 2.00 mg/dL (1.7-2.3) 03/10/17 22:43 Total Creatine Kinase 132 units/L (55-170) 03/11/17 06:19 CK-MB (CK-2) 3.6 ng/mL (0.0-4.0) 03/11/17 06:19 CK-MB (CK-2) Rel Index 2.7 (0-4) 03/11/17 06:19 Troponin T 0.127 ng/mL (0.00-0.029) H* 03/11/17 06:19 NT-Pro-B Natriuret Pep 3890 pg/mL (0-900) H 03/10/17 22:43 Triglycerides 77 mg/dL (2-149) 03/10/17 21:30 Cholesterol 121 mg/dL (50-199) 03/10/17 21:30 LDL Cholesterol Direct 44 mg/dL (50-130) L 03/10/17 21:30 HDL Cholesterol 62 mg/dL (40-59) H 03/10/17 21:30 Cholesterol/HDL Ratio 1.95 % 03/10/17 21:30 Urine Color Yellow (Yellow) 03/10/17 23:45 Urine Turbidity Clear (Clear) 03/10/17 23:45 Urine pH 5.0 (5.0-7.0) 03/10/17 23:45 Ur Specific [place] 1.010 (1.003-1.030) 03/10/17 23:45 Urine Protein 30 mg/dl mg/dL (Negative) 03/10/17 23:45 Urine Glucose (UA) Neg mg/dL (Negative) 03/10/17 23:45 Urine Ketones Neg mg/dL (Negative) 03/10/17 23:45 Urine Blood Neg (Negative) 03/10/17 23:45 Urine Nitrite Neg (Negative) 03/10/17 23:45 Urine Bilirubin Neg (Negative) 03/10/17 23:45 Urine Urobilinogen < 2.0 mg/dL (<2.0) 03/10/17 23:45 Ur Leukocyte Esterase Neg (Negative) 03/10/17 23:45 Urine WBC (Auto) < 1.0 /HPF (0.0-6.0) 03/10/17 23:45 Urine RBC (Auto) 1.0 /HPF (0.0-6.0) 03/10/17 23:45 U Epithel Cells (Auto) < 1.0 /HPF (0-13.0) 03/10/17 23:45
[2017-03-11] MEDS: FLOMAX PO SCH (20:59)
[2017-03-11] MEDS ORDERED: LOPRESSOR PO SCH (22:00)
[2017-03-12 06:47] LABS: Anion Gap 13 mmol/L; Blood Urea Nitrogen 29 mg/dL (9-20); Calcium 9.1 mg/dL (8.4-10.2); Carbon Dioxide 36 mmol/L (22-30); Chloride 87.4 mmol/L (98-107); Glucose 108 mg/dL (75-100); Potassium 4.7 mmol/L (3.6-5.0); Sodium 132 mmol/L (137-145)
--- NOTE | 2017-03-12 09:22 | Progress Note ---
Assessment and Plan Assessment: Acute diastolic HF Elevated troponin - ECG with NAF; pt denies chest pain; normal CK and MB noted; lipid panel WNL. HTN DM COPD Anemia Hyponatremia - persistent. H/o CVA Dementia Plan: Minimally elevated troponins are flat, unchanged from prior admissions, and in setting of normal CK and MB. Do not suspect ACS at this time. Cont ASA. Increase Lopressor to 25mg PO BID. Cont with gentle diuresis. Repeat BMP in AM. No indication for any further cardiac testing at this time. Will continue with conservative management given age, dementia, and multiple co-morbidities. The patient has been seen in conjunction with Dr. Lind who agrees with the assessment and plan of care. Subjective Date of service: 03/12/17 Principal diagnosis: acute on chronic DHF Interval history: Pt resting in bed, on BiPAP, NAD. VSS. Objective Last Vital Signs Temp 98.4 F 03/12/17 04:20 Pulse 74 03/12/17 04:20 Resp 22 03/12/17 04:20 BP 165/84 03/12/17 04:20 Pulse Ox 95 03/12/17 04:20 - Physical Examination General: Other (lethargic; on BiPAP) HEENT: Positive: PERRL, Normocephaly, Mucus Membranes Moist Neck: Positive: neck supple, trachea midline Cardiac: Positive: Reg Rate and Rhythm, S1/S2 Lungs: Positive: Decreased Breath Sounds, Rales, Oxygen Neuro: Positive: Grossly Intact, Weakness (left-sided d/t CVA) Abdomen: Positive: Soft, Active Bowel Sounds. Negative: Tender Skin: Positive: Clear. Negative: Rash Musculoskeletal: No Fluid Collection, No Pain, Normal Range of Motion Extremities: Present: upper extr. pulses, lower extr. pulses. Absent: edema - Labs and Meds Comprehensive Metabolic Panel 03/12/17 Range/Units 05:50 Sodium 132 L D (137-145) mmol/L Potassium 4.7 (3.6-5.0) mmol/L Chloride 87.4 L (98-107) mmol/L Carbon Dioxide 36 H (22-30) mmol/L BUN 29 H (9-20) mg/dL Creatinine 1.3 (0.8-1.5) mg/dL Glucose 108 H (75-100) mg/dL Calcium 9.1 (8.4-10.2) mg/dL - Imaging and Cardiology EKG: report reviewed, image reviewed Echo: report reviewed - Telemetry EKG Rhythm: Sinus Rhythm - EKG Sinus rhythms and dysrhythmias: sinus rhythm AV and intraventricular conduction: right bundle branch block
[2017-03-12] MEDS: PROSCAR PO SCH (10:00)
[2017-03-12] MEDS: LASIX IV SCH (10:00)
[2017-03-12] MEDS: RisperDAL PO SCH (10:00)
[2017-03-12] MEDS: celeXA PO SCH (10:30)
[2017-03-12] MEDS: FERGON PO SCH (10:30)
[2017-03-12] MEDS: ABILIFY PO SCH (10:30)
[2017-03-12] MEDS: BABY ASPIRIN PO SCH (10:30)
[2017-03-12] MEDS: CULTURELLE PO SCH ×2 (10:30→22:00)
--- NOTE | 2017-03-12 13:55 | Progress Note ---
Assessment and Plan Assessment and plan: Patient is a 76 yo man from [facility] w/ history of Diastolic heart failure, Echo done 01/30/2017 showed EF 55-60%, mild LVH, BPH, COPD, CVA, Dementia, DM2 and HTN who presents with sob and hypoxia. He is DNR per records. CXR shows mild chf; troponin slightly elevated but unchanged from baseline. -Acute on chronic decompensated diastolic heart failure: Gentle diuresis due to moderate hyponatremia -Chronic hyponatremia, ?chf related vs siadh: Continue to monitor -Hyperkalemia, mild: Continue to monitor, creatinine 1.3 estimated GFR ~60 -Type II [place]: followed by cardiology, and conservative management -DVT prophylaxis: Subcutaneous Lovenox DO NOT RESUSCITATE Anticipate discharge tomorrow History Interval history: Patient seen and examined. Follow up on current diagnosis. Overnight uneventful. No cp, sob, n/v or severe headaches. Imaging, old records, testing, labs, nursing notes reviewed. Hospitalist Physical - Physical exam Narrative exam: GEN: WDWN, NAD, AWAKE, ALERT, ORIENTATED x 1 CVS: RRR, NORMAL S1S2 LUNGS/CHEST: Bilateral crackles, NORMAL CHEST EXPANSION B, GOOD AIR ENTRY B ABD: SOFT NTND, GBS, NO REBOUND OR GUARDING NEURO: CN 2-12 GROSSLY INTACT, NO new FOCAL DEFICITS PSY: CALM and confused - Constitutional Vitals: Temp Pulse Resp BP Pulse Ox 98.2 F 60 16 160/73 98 03/12/17 10:08 03/12/17 10:08 03/12/17 10:08 03/12/17 10:08 03/12/17 10:08 General appearance: Present: no acute distress Results - Labs CBC & Chem 7: 03/10/17 21:30 03/12/17 05:50 Labs: Laboratory Last Values WBC 6.0 K/mm3 (4.5-11.0) 03/10/17 21:30 RBC 3.40 M/mm3 (3.65-5.03) L 03/10/17 21:30 Hgb 9.7 gm/dl (11.8-15.2) L 03/10/17 21:30 Hct 29.2 % (35.5-45.6) L 03/10/17 21:30 MCV 86 fl (84-94) 03/10/17 21:30 MCH 29 pg (28-32) 03/10/17 21:30 MCHC 33 % (32-34) 03/10/17 21:30 RDW 13.5 % (13.2-15.2) 03/10/17 21:30 Plt Count 178 K/mm3 (140-440) 03/10/17 21:30 Lymph % (Auto) 33.1 % (13.4-35.0) 03/10/17 21:30 [place] % (Auto) 9.1 % (0.0-7.3) H 03/10/17 21:30 Eos % (Auto) 2.1 % (0.0-4.3) 03/10/17 21:30 Baso % (Auto) 0.5 % (0.0-1.8) 03/10/17 21:30 Lymph # 2.0 K/mm3 (1.2-5.4) 03/10/17 21:30 [place] # 0.5 K/mm3 (0.0-0.8) 03/10/17 21:30 Eos # 0.1 K/mm3 (0.0-0.4) 03/10/17 21:30 Baso # 0.0 K/mm3 (0.0-0.1) 03/10/17 21:30 Seg Neutrophils % 55.2 % (40.0-70.0) 03/10/17 21:30 Seg Neutrophils # 3.3 K/mm3 (1.8-7.7) 03/10/17 21:30 D-Dimer 184.28 ng/mlDDU (0-234) 03/11/17 06:19 Sodium 132 mmol/L (137-145) L D 03/12/17 05:50 Potassium 4.7 mmol/L (3.6-5.0) 03/12/17 05:50 Chloride 87.4 mmol/L (98-107) L 03/12/17 05:50 Carbon Dioxide 36 mmol/L (22-30) H 03/12/17 05:50 Anion Gap 13 mmol/L 03/12/17 05:50 BUN 29 mg/dL (9-20) H 03/12/17 05:50 Creatinine 1.3 mg/dL (0.8-1.5) 03/12/17 05:50 Estimated GFR > 60 ml/min 03/12/17 05:50 BUN/Creatinine Ratio 22.30 % 03/12/17 05:50 Glucose 108 mg/dL (75-100) H 03/12/17 05:50 POC Glucose 121 (70-105) H 03/11/17 23:41 Calcium 9.1 mg/dL (8.4-10.2) 03/12/17 05:50 Magnesium 2.00 mg/dL (1.7-2.3) 03/10/17 22:43 Total Creatine Kinase 132 units/L (55-170) 03/11/17 06:19 CK-MB (CK-2) 3.6 ng/mL (0.0-4.0) 03/11/17 06:19 CK-MB (CK-2) Rel Index 2.7 (0-4) 03/11/17 06:19 Troponin T 0.127 ng/mL (0.00-0.029) H* 03/11/17 06:19 NT-Pro-B Natriuret Pep 3890 pg/mL (0-900) H 03/10/17 22:43 Triglycerides 77 mg/dL (2-149) 03/10/17 21:30 Cholesterol 121 mg/dL (50-199) 03/10/17 21:30 LDL Cholesterol Direct 44 mg/dL (50-130) L 03/10/17 21:30 HDL Cholesterol 62 mg/dL (40-59) H 03/10/17 21:30 Cholesterol/HDL Ratio 1.95 % 03/10/17 21:30 Urine Color Yellow (Yellow) 03/10/17 23:45 Urine Turbidity Clear (Clear) 03/10/17 23:45 Urine pH 5.0 (5.0-7.0) 03/10/17 23:45 Ur Specific [place] 1.010 (1.003-1.030) 03/10/17 23:45 Urine Protein 30 mg/dl mg/dL (Negative) 03/10/17 23:45 Urine Glucose (UA) Neg mg/dL (Negative) 03/10/17 23:45 Urine Ketones Neg mg/dL (Negative) 03/10/17 23:45 Urine Blood Neg (Negative) 03/10/17 23:45 Urine Nitrite Neg (Negative) 03/10/17 23:45 Urine Bilirubin Neg (Negative) 03/10/17 23:45 Urine Urobilinogen < 2.0 mg/dL (<2.0) 03/10/17 23:45 Ur Leukocyte Esterase Neg (Negative) 03/10/17 23:45 Urine WBC (Auto) < 1.0 /HPF (0.0-6.0) 03/10/17 23:45 Urine RBC (Auto) 1.0 /HPF (0.0-6.0) 03/10/17 23:45 U Epithel Cells (Auto) < 1.0 /HPF (0-13.0) 03/10/17 23:45
[2017-03-12] MEDS: LOVENOX SUB-Q SCH (16:54)
[2017-03-12] MEDS: LOPRESSOR PO SCH ×2 (17:34→22:00)
[2017-03-12] MEDS: FLOMAX PO SCH (22:00)
[2017-03-13] MEDS: RisperDAL PO SCH ×3 (06:12→22:44)
[2017-03-13] MEDS: ABILIFY PO SCH (09:46)
[2017-03-13] MEDS: PROSCAR PO SCH (09:47)
[2017-03-13] MEDS: BABY ASPIRIN PO SCH (09:47)
[2017-03-13] MEDS: celeXA PO SCH (09:47)
[2017-03-13] MEDS: LASIX IV SCH (09:47)
[2017-03-13] MEDS: LOVENOX SUB-Q SCH (09:48)
[2017-03-13] MEDS: LOPRESSOR PO SCH ×2 (09:54→22:45)
[2017-03-13] MEDS: CULTURELLE PO SCH ×2 (10:00→22:44)
[2017-03-13] MEDS: FERGON PO SCH (10:00)
--- NOTE | 2017-03-13 12:56 | Progress Note ---
Assessment and Plan Assessment and plan: Patient is a 76 yo man from [facility] w/ history of Diastolic heart failure, Echo done 01/30/2017 showed EF 55-60%, mild LVH, BPH, COPD, CVA, Dementia, DM2 and HTN who presents with sob and hypoxia. He is DNR per records. CXR shows mild chf; troponin slightly elevated but unchanged from baseline. -Acute on chronic decompensated diastolic heart failure: Gentle diuresis due to moderate hyponatremia -Acute hypoxic respiratory failure: continue 02 -Chronic hyponatremia: Continue to monitor -Hyperkalemia, resolve. Continue to monitor, creatinine 1.3 estimated GFR ~60 -Type II [place]: followed by cardiology, and conservative management -DVT prophylaxis: Subcutaneous Lovenox DO NOT RESUSCITATE I spoke with Savanna at [phone] and gave her update. Back on bipap. Continue to diuresis History Interval history: Patient seen and examined. Follow up on sob. Overnight he became dyspenic and placed on bipap. Imaging, old records, testing, labs, nursing notes reviewed. Hospitalist Physical - Physical exam Narrative exam: GEN: ill appearing, moderate accessory muscle usage, lethargic, ORIENTATED x 1 CVS: RRR, NORMAL S1S2 LUNGS/CHEST: Bilateral crackles, NORMAL CHEST EXPANSION B, GOOD AIR ENTRY B ABD: SOFT NTND, GBS, NO REBOUND OR GUARDING NEURO: CN 2-12 GROSSLY INTACT, NO new FOCAL DEFICITS PSY: CALM and confused - Constitutional Vitals: Temp Pulse Resp BP Pulse Ox 98.0 F 66 16 131/74 97 03/13/17 09:57 03/13/17 09:57 03/13/17 09:57 03/13/17 09:57 03/13/17 09:57 General appearance: Present: no acute distress Results - Labs CBC & Chem 7: 03/10/17 21:30 03/12/17 05:50 Labs: Laboratory Last Values WBC 6.0 K/mm3 (4.5-11.0) 03/10/17 21:30 RBC 3.40 M/mm3 (3.65-5.03) L 03/10/17 21:30 Hgb 9.7 gm/dl (11.8-15.2) L 03/10/17 21:30 Hct 29.2 % (35.5-45.6) L 03/10/17 21:30 MCV 86 fl (84-94) 03/10/17 21:30 MCH 29 pg (28-32) 03/10/17 21:30 MCHC 33 % (32-34) 03/10/17 21:30 RDW 13.5 % (13.2-15.2) 03/10/17 21:30 Plt Count 178 K/mm3 (140-440) 03/10/17 21:30 Lymph % (Auto) 33.1 % (13.4-35.0) 03/10/17 21:30 [place] % (Auto) 9.1 % (0.0-7.3) H 03/10/17 21:30 Eos % (Auto) 2.1 % (0.0-4.3) 03/10/17 21:30 Baso % (Auto) 0.5 % (0.0-1.8) 03/10/17 21:30 Lymph # 2.0 K/mm3 (1.2-5.4) 03/10/17 21:30 [place] # 0.5 K/mm3 (0.0-0.8) 03/10/17 21:30 Eos # 0.1 K/mm3 (0.0-0.4) 03/10/17 21:30 Baso # 0.0 K/mm3 (0.0-0.1) 03/10/17 21:30 Seg Neutrophils % 55.2 % (40.0-70.0) 03/10/17 21:30 Seg Neutrophils # 3.3 K/mm3 (1.8-7.7) 03/10/17 21:30 D-Dimer 184.28 ng/mlDDU (0-234) 03/11/17 06:19 Sodium 132 mmol/L (137-145) L D 03/12/17 05:50 Potassium 4.7 mmol/L (3.6-5.0) 03/12/17 05:50 Chloride 87.4 mmol/L (98-107) L 03/12/17 05:50 Carbon Dioxide 36 mmol/L (22-30) H 03/12/17 05:50 Anion Gap 13 mmol/L 03/12/17 05:50 BUN 29 mg/dL (9-20) H 03/12/17 05:50 Creatinine 1.3 mg/dL (0.8-1.5) 03/12/17 05:50 Estimated GFR > 60 ml/min 03/12/17 05:50 BUN/Creatinine Ratio 22.30 % 03/12/17 05:50 Glucose 108 mg/dL (75-100) H 03/12/17 05:50 POC Glucose 148 (70-105) H 03/12/17 21:56 Calcium 9.1 mg/dL (8.4-10.2) 03/12/17 05:50 Magnesium 2.00 mg/dL (1.7-2.3) 03/10/17 22:43 Total Creatine Kinase 132 units/L (55-170) 03/11/17 06:19 CK-MB (CK-2) 3.6 ng/mL (0.0-4.0) 03/11/17 06:19 CK-MB (CK-2) Rel Index 2.7 (0-4) 03/11/17 06:19 Troponin T 0.127 ng/mL (0.00-0.029) H* 03/11/17 06:19 NT-Pro-B Natriuret Pep 3890 pg/mL (0-900) H 03/10/17 22:43 Triglycerides 77 mg/dL (2-149) 03/10/17 21:30 Cholesterol 121 mg/dL (50-199) 03/10/17 21:30 LDL Cholesterol Direct 44 mg/dL (50-130) L 03/10/17 21:30 HDL Cholesterol 62 mg/dL (40-59) H 03/10/17 21:30 Cholesterol/HDL Ratio 1.95 % 03/10/17 21:30 Urine Color Yellow (Yellow) 03/10/17 23:45 Urine Turbidity Clear (Clear) 03/10/17 23:45 Urine pH 5.0 (5.0-7.0) 03/10/17 23:45 Ur Specific [place] 1.010 (1.003-1.030) 03/10/17 23:45 Urine Protein 30 mg/dl mg/dL (Negative) 03/10/17 23:45 Urine Glucose (UA) Neg mg/dL (Negative) 03/10/17 23:45 Urine Ketones Neg mg/dL (Negative) 03/10/17 23:45 Urine Blood Neg (Negative) 03/10/17 23:45 Urine Nitrite Neg (Negative) 03/10/17 23:45 Urine Bilirubin Neg (Negative) 03/10/17 23:45 Urine Urobilinogen < 2.0 mg/dL (<2.0) 03/10/17 23:45 Ur Leukocyte Esterase Neg (Negative) 03/10/17 23:45 Urine WBC (Auto) < 1.0 /HPF (0.0-6.0) 03/10/17 23:45 Urine RBC (Auto) 1.0 /HPF (0.0-6.0) 03/10/17 23:45 U Epithel Cells (Auto) < 1.0 /HPF (0-13.0) 03/10/17 23:45
[2017-03-13] MEDS: FLOMAX PO SCH (22:45)
[2017-03-14 08:52] LABS: Hematocrit 31.3 % (35.5-45.6); Hemoglobin 10.4 gm/dl (11.8-15.2); Mean Corpuscular HGB Conc 33 % (32-34); Mean Corpuscular Hemoglobin 29 pg (28-32); Mean Corpuscular Volume 87 fl (84-94); Platelet Count 194 K/mm3 (140-440); Red Blood Count 3.59 M/mm3 (3.65-5.03); Red Cell Distribution Width 13.4 % (13.2-15.2); White Blood Count 7.3 K/mm3 (4.5-11.0)
[2017-03-14 08:59] LABS: BUN/Creatinine Ratio 22.14; Calcium 9.4 mg/dL (8.4-10.2); Chloride 86.6 mmol/L (98-107); Potassium 4.6 mmol/L (3.6-5.0)
[2017-03-14] MEDS: RisperDAL PO SCH ×2 (10:45→21:39)
[2017-03-14] MEDS: FERGON PO SCH (10:45)
[2017-03-14] MEDS: ABILIFY PO SCH (10:45)
[2017-03-14] MEDS: celeXA PO SCH (10:45)
[2017-03-14] MEDS: BABY ASPIRIN PO SCH (10:45)
[2017-03-14] MEDS: LASIX IV SCH (10:45)
[2017-03-14] MEDS: LOPRESSOR PO SCH ×2 (10:45→21:39)
[2017-03-14] MEDS: LOVENOX SUB-Q SCH (10:45)
[2017-03-14] MEDS: CULTURELLE PO SCH ×2 (10:45→21:38)
[2017-03-14] MEDS: PROSCAR PO SCH (10:45)
--- NOTE | 2017-03-14 11:39 | Progress Note ---
Assessment and Plan Assessment and plan: Patient is a 76 yo man from [facility] w/ history of Diastolic heart failure, Echo done 01/30/2017 showed EF 55-60%, mild LVH, BPH, COPD, CVA, Dementia, DM2 and HTN who presents with sob and hypoxia. He is DNR per records. CXR shows mild chf; troponin slightly elevated but unchanged from baseline. -Acute on chronic decompensated diastolic heart failure: Gentle diuresis due to moderate hyponatremia -Acute hypoxic respiratory failure: continue 02 -Chronic hyponatremia: Continue to monitor -Hyperkalemia, resolve. Continue to monitor, creatinine 1.3 estimated GFR ~60 -Type II [place]: followed by cardiology, and conservative management -DVT prophylaxis: Subcutaneous Lovenox DO NOT RESUSCITATE Off BiPAP on 2 L pulse ox 96%, continue diuresis and monitor creatinine possible discharge tomorrow back to [facility] if he remains off BiPAP or high oxygen History Interval history: Patient seen and examined. Follow up on sob. Overnight uneventful off BiPAP. Imaging, old records, testing, labs, nursing notes reviewed. He denies any new issue pains or complaints. Hospitalist Physical - Physical exam Narrative exam: GEN: ill appearing, moderate accessory muscle usage, lethargic, ORIENTATED x 2, missed the current year he thought it was 2006 CVS: RRR, NORMAL S1S2 LUNGS/CHEST: Bilateral crackles, NORMAL CHEST EXPANSION B, GOOD AIR ENTRY B ABD: SOFT NTND, GBS, NO REBOUND OR GUARDING NEURO: CN 2-12 GROSSLY INTACT, NO new FOCAL DEFICITS PSY: CALM and confused - Constitutional Vitals: Temp Pulse Resp BP Pulse Ox 98.4 F 68 18 106/69 96 03/14/17 04:00 03/14/17 10:45 03/14/17 04:00 03/14/17 10:45 03/14/17 10:00 General appearance: Present: no acute distress Results - Labs CBC & Chem 7: 03/14/17 08:02 03/14/17 08:02 Labs: Laboratory Last Values WBC 7.3 K/mm3 (4.5-11.0) 03/14/17 08:02 RBC 3.59 M/mm3 (3.65-5.03) L 03/14/17 08:02 Hgb 10.4 gm/dl (11.8-15.2) L 03/14/17 08:02 Hct 31.3 % (35.5-45.6) L 03/14/17 08:02 MCV 87 fl (84-94) 03/14/17 08:02 MCH 29 pg (28-32) 03/14/17 08:02 MCHC 33 % (32-34) 03/14/17 08:02 RDW 13.4 % (13.2-15.2) 03/14/17 08:02 Plt Count 194 K/mm3 (140-440) 03/14/17 08:02 Lymph % (Auto) 33.1 % (13.4-35.0) 03/10/17 21:30 [place] % (Auto) 9.1 % (0.0-7.3) H 03/10/17 21:30 Eos % (Auto) 2.1 % (0.0-4.3) 03/10/17 21:30 Baso % (Auto) 0.5 % (0.0-1.8) 03/10/17 21:30 Lymph # 2.0 K/mm3 (1.2-5.4) 03/10/17 21:30 [place] # 0.5 K/mm3 (0.0-0.8) 03/10/17 21:30 Eos # 0.1 K/mm3 (0.0-0.4) 03/10/17 21:30 Baso # 0.0 K/mm3 (0.0-0.1) 03/10/17 21:30 Seg Neutrophils % 55.2 % (40.0-70.0) 03/10/17 21:30 Seg Neutrophils # 3.3 K/mm3 (1.8-7.7) 03/10/17 21:30 D-Dimer 184.28 ng/mlDDU (0-234) 03/11/17 06:19 Sodium 134 mmol/L (137-145) L 03/14/17 08:02 Potassium 4.6 mmol/L (3.6-5.0) 03/14/17 08:02 Chloride 86.6 mmol/L (98-107) L 03/14/17 08:02 Carbon Dioxide 37 mmol/L (22-30) H 03/14/17 08:02 Anion Gap 15 mmol/L 03/14/17 08:02 BUN 31 mg/dL (9-20) H 03/14/17 08:02 Creatinine 1.4 mg/dL (0.8-1.5) 03/14/17 08:02 Estimated GFR 59 ml/min 03/14/17 08:02 BUN/Creatinine Ratio 22.14 % 03/14/17 08:02 Glucose 109 mg/dL (75-100) H 03/14/17 08:02 POC Glucose 115 (70-105) H 03/14/17 08:02 Calcium 9.4 mg/dL (8.4-10.2) 03/14/17 08:02 Magnesium 2.00 mg/dL (1.7-2.3) 03/10/17 22:43 Total Creatine Kinase 132 units/L (55-170) 03/11/17 06:19 CK-MB (CK-2) 3.6 ng/mL (0.0-4.0) 03/11/17 06:19 CK-MB (CK-2) Rel Index 2.7 (0-4) 03/11/17 06:19 Troponin T 0.127 ng/mL (0.00-0.029) H* 03/11/17 06:19 NT-Pro-B Natriuret Pep 3890 pg/mL (0-900) H 03/10/17 22:43 Triglycerides 77 mg/dL (2-149) 03/10/17 21:30 Cholesterol 121 mg/dL (50-199) 03/10/17 21:30 LDL Cholesterol Direct 44 mg/dL (50-130) L 03/10/17 21:30 HDL Cholesterol 62 mg/dL (40-59) H 03/10/17 21:30 Cholesterol/HDL Ratio 1.95 % 03/10/17 21:30 Urine Color Yellow (Yellow) 03/10/17 23:45 Urine Turbidity Clear (Clear) 03/10/17 23:45 Urine pH 5.0 (5.0-7.0) 03/10/17 23:45 Ur Specific [place] 1.010 (1.003-1.030) 03/10/17 23:45 Urine Protein 30 mg/dl mg/dL (Negative) 03/10/17 23:45 Urine Glucose (UA) Neg mg/dL (Negative) 03/10/17 23:45 Urine Ketones Neg mg/dL (Negative) 03/10/17 23:45 Urine Blood Neg (Negative) 03/10/17 23:45 Urine Nitrite Neg (Negative) 03/10/17 23:45 Urine Bilirubin Neg (Negative) 03/10/17 23:45 Urine Urobilinogen < 2.0 mg/dL (<2.0) 03/10/17 23:45 Ur Leukocyte Esterase Neg (Negative) 03/10/17 23:45 Urine WBC (Auto) < 1.0 /HPF (0.0-6.0) 03/10/17 23:45 Urine RBC (Auto) 1.0 /HPF (0.0-6.0) 03/10/17 23:45 U Epithel Cells (Auto) < 1.0 /HPF (0-13.0) 03/10/17 23:45
[2017-03-14] MEDS ORDERED: D50W (25GM) IV ONE ×3 (17:21→18:00)
[2017-03-14] MEDS: D5/0.45NS 1,000 ML IV SCH (18:52)
[2017-03-14] MEDS: FLOMAX PO SCH (21:39)
[2017-03-15 05:43] LABS: Anion Gap 13 mmol/L; Blood Urea Nitrogen 29 mg/dL (9-20); Carbon Dioxide 32 mmol/L (22-30); Chloride 86.9 mmol/L (98-107); Glucose 427 mg/dL (75-100); Potassium 3.9 mmol/L (3.6-5.0); Sodium 128 mmol/L (137-145)
[2017-03-15] MEDS: D5/0.45NS 1,000 ML IV SCH (07:07)
[2017-03-15 07:45] LABS: Hematocrit 27.4 % (35.5-45.6); Hemoglobin 9.1 gm/dl (11.8-15.2); Mean Corpuscular HGB Conc 33 % (32-34); Mean Corpuscular Hemoglobin 29 pg (28-32); Mean Corpuscular Volume 88 fl (84-94); Platelet Count 163 K/mm3 (140-440); Red Blood Count 3.12 M/mm3 (3.65-5.03); Red Cell Distribution Width 13.7 % (13.2-15.2); White Blood Count 6.5 K/mm3 (4.5-11.0)
[2017-03-15] MEDS: CULTURELLE PO SCH ×2 (09:25→22:23)
--- NOTE | 2017-03-15 10:05 | Discharge Summary ---
Providers - Providers Date of Admission: 03/11/17 01:12 Date of discharge: 03/15/17 Attending physician: VIRGILIO CARR Primary care physician: PRE PRESS MANAGER Hospitalization Condition: Stable Hospital course: Patient is a 76 [address] man from [facility] w/ history of Diastolic heart failure, Echo done 01/30/2017 showed EF 55-60%, mild LVH, BPH, COPD, CVA, Dementia, DM2 and HTN who presents with sob and hypoxia. He is DNR per records. CXR shows mild chf; troponin slightly elevated but unchanged from baseline. -Acute on chronic decompensated diastolic heart failure: Gentle diuresis due to moderate hyponatremia -Acute hypoxic respiratory failure: continue 02 -Chronic hyponatremia: Continue to monitor -Hyperkalemia, resolve. Continue to monitor, creatinine 1.3 estimated GFR ~60 -Type II NV: followed by cardiology, and conservative management -DVT prophylaxis: Subcutaneous Lovenox DO NOT RESUSCITATE Hyperglycemia due to d5 solution, Off bipap, back to [place] Disposition: DC/TX SNF W [facility] CERT Time spent for discharge: 36 minutes Core Measure Documentation - Palliative Care Palliative Care/ Comfort Measures: Not Applicable - Core Measures Any of the following diagnoses?: heart failure - VTE Discharge Requirements Deep Vein Thrombosis/Pulmonary Embolism Present on Admission: No Has pt received <5 days of overlap therapy or INR<2.0: No Anticoagulant overlap therapy prescribed at discharge: No Contraindication No Overlap Therapy order at DC: Not Indicated - Heart Failure Discharge Requirements NETO/ARB for LVSD if EF <40%: Not Applicable Beta karthik at discharge: Yes Exam - Physical Exam Narrative exam: GEN: ill appearing, moderate accessory muscle usage, lethargic, ORIENTATED x 2, missed the current year he thought it was 2006 CVS: RRR, NORMAL S1S2 LUNGS/CHEST: Bilateral crackles, NORMAL CHEST EXPANSION B, GOOD AIR ENTRY B ABD: SOFT NTND, GBS, NO REBOUND OR GUARDING NEURO: CN 2-12 GROSSLY INTACT, NO new FOCAL DEFICITS PSY: CALM and confused - Constitutional Vitals: Temp Pulse Resp BP Pulse Ox 97.9 F 58 L 20 125/67 95 03/15/17 08:03 03/15/17 08:03 03/15/17 08:03 03/15/17 08:03 03/15/17 08:03 Plan Activity: up only with assistance, fall precautions Diet: low salt, diabetic Special Instructions: record daily BP diary, record blood sugar diary Follow up with: PRIMARY CARE, [Primary Care Provider] - 3-5 Days Prescriptions: Insulin Lispro [HumaLOG VIAL] 1 dose SQ AC PRN #1 vial PRN Reason: Hyperglycemia
[2017-03-15] MEDS: RisperDAL PO SCH ×2 (10:21→22:24)
[2017-03-15] MEDS: PROSCAR PO SCH (10:21)
[2017-03-15] MEDS: BABY ASPIRIN PO SCH (10:21)
[2017-03-15] MEDS: ABILIFY PO SCH (10:21)
[2017-03-15] MEDS: FERGON PO SCH (10:21)
[2017-03-15] MEDS: celeXA PO SCH (10:21)
[2017-03-15] MEDS: LOVENOX SUB-Q SCH (10:22)
[2017-03-15] MEDS: LASIX IV SCH (10:22)
[2017-03-15] MEDS: LOPRESSOR PO SCH ×2 (10:23→22:25)
--- NOTE | 2017-03-15 15:22 | Progress Note ---
Assessment and Plan Assessment and plan: Patient is a 76 yo man from [facility] w/ history of Diastolic heart failure, Echo done 01/30/2017 showed EF 55-60%, mild LVH, BPH, COPD, CVA, Dementia, DM2 and HTN who presents with sob and hypoxia. He is DNR per records. CXR shows mild chf; troponin slightly elevated but unchanged from baseline. -Acute on chronic decompensated diastolic heart failure: Gentle diuresis due to moderate hyponatremia -Acute hypoxic respiratory failure: continue 02 -Chronic hyponatremia: Continue to monitor -Hyperkalemia, resolve. Continue to monitor, creatinine 1.3 estimated GFR ~60 -Type II [place]: followed by cardiology, and conservative management -DVT prophylaxis: Subcutaneous Lovenox DO NOT RESUSCITATE Off BiPAP on 2 L pulse ox 96%, continue diuresis and monitor creatinine possible discharge tomorrow back to [facility] if he remains off BiPAP or high oxygen History Interval history: Patient seen and examined. Follow up on sob. Overnight uneventful off BiPAP. Imaging, old records, testing, labs, nursing notes reviewed. He denies any new issue pains or complaints. Hospitalist Physical - Physical exam Narrative exam: GEN: ill appearing, moderate accessory muscle usage, lethargic, ORIENTATED x 2, missed the current year he thought it was 2006 CVS: RRR, NORMAL S1S2 LUNGS/CHEST: Bilateral crackles, NORMAL CHEST EXPANSION B, GOOD AIR ENTRY B ABD: SOFT NTND, GBS, NO REBOUND OR GUARDING NEURO: CN 2-12 GROSSLY INTACT, NO new FOCAL DEFICITS PSY: CALM and confused - Constitutional Vitals: Temp Pulse Resp BP Pulse Ox 97.8 F 61 20 118/66 95 03/15/17 11:37 03/15/17 11:37 03/15/17 11:37 03/15/17 11:37 03/15/17 08:03 General appearance: Present: no acute distress Results - Labs CBC & Chem 7: 03/15/17 04:54 03/15/17 04:54 Labs: Laboratory Last Values WBC 6.5 K/mm3 (4.5-11.0) 03/15/17 04:54 RBC 3.12 M/mm3 (3.65-5.03) L 03/15/17 04:54 Hgb 9.1 gm/dl (11.8-15.2) L 03/15/17 04:54 Hct 27.4 % (35.5-45.6) L 03/15/17 04:54 MCV 88 fl (84-94) 03/15/17 04:54 MCH 29 pg (28-32) 03/15/17 04:54 MCHC 33 % (32-34) 03/15/17 04:54 RDW 13.7 % (13.2-15.2) 03/15/17 04:54 Plt Count 163 K/mm3 (140-440) 03/15/17 04:54 Lymph % (Auto) 33.1 % (13.4-35.0) 03/10/17 21:30 [place] % (Auto) 9.1 % (0.0-7.3) H 03/10/17 21:30 Eos % (Auto) 2.1 % (0.0-4.3) 03/10/17 21:30 Baso % (Auto) 0.5 % (0.0-1.8) 03/10/17 21:30 Lymph # 2.0 K/mm3 (1.2-5.4) 03/10/17 21:30 [place] # 0.5 K/mm3 (0.0-0.8) 03/10/17 21:30 Eos # 0.1 K/mm3 (0.0-0.4) 03/10/17 21:30 Baso # 0.0 K/mm3 (0.0-0.1) 03/10/17 21:30 Seg Neutrophils % 55.2 % (40.0-70.0) 03/10/17 21:30 Seg Neutrophils # 3.3 K/mm3 (1.8-7.7) 03/10/17 21:30 D-Dimer 184.28 ng/mlDDU (0-234) 03/11/17 06:19 Sodium 128 mmol/L (137-145) L 03/15/17 04:54 Potassium 3.9 mmol/L (3.6-5.0) 03/15/17 04:54 Chloride 86.9 mmol/L (98-107) L 03/15/17 04:54 Carbon Dioxide 32 mmol/L (22-30) H 03/15/17 04:54 Anion Gap 13 mmol/L 03/15/17 04:54 BUN 29 mg/dL (9-20) H 03/15/17 04:54 Creatinine 1.3 mg/dL (0.8-1.5) 03/15/17 04:54 Estimated GFR > 60 ml/min 03/15/17 04:54 BUN/Creatinine Ratio 22.30 % 03/15/17 04:54 Glucose 427 mg/dL (75-100) H 03/15/17 04:54 POC Glucose 168 (70-105) H 03/15/17 11:37 Calcium 8.0 mg/dL (8.4-10.2) L 03/15/17 04:54 Magnesium 2.00 mg/dL (1.7-2.3) 03/10/17 22:43 Total Creatine Kinase 132 units/L (55-170) 03/11/17 06:19 CK-MB (CK-2) 3.6 ng/mL (0.0-4.0) 03/11/17 06:19 CK-MB (CK-2) Rel Index 2.7 (0-4) 03/11/17 06:19 Troponin T 0.127 ng/mL (0.00-0.029) H* 03/11/17 06:19 NT-Pro-B Natriuret Pep 3890 pg/mL (0-900) H 03/10/17 22:43 Triglycerides 77 mg/dL (2-149) 03/10/17 21:30 Cholesterol 121 mg/dL (50-199) 03/10/17 21:30 LDL Cholesterol Direct 44 mg/dL (50-130) L 03/10/17 21:30 HDL Cholesterol 62 mg/dL (40-59) H 03/10/17 21:30 Cholesterol/HDL Ratio 1.95 % 03/10/17 21:30 Urine Color Yellow (Yellow) 03/10/17 23:45 Urine Turbidity Clear (Clear) 03/10/17 23:45 Urine pH 5.0 (5.0-7.0) 03/10/17 23:45 Ur Specific [place] 1.010 (1.003-1.030) 03/10/17 23:45 Urine Protein 30 mg/dl mg/dL (Negative) 03/10/17 23:45 Urine Glucose (UA) Neg mg/dL (Negative) 03/10/17 23:45 Urine Ketones Neg mg/dL (Negative) 03/10/17 23:45 Urine Blood Neg (Negative) 03/10/17 23:45 Urine Nitrite Neg (Negative) 03/10/17 23:45 Urine Bilirubin Neg (Negative) 03/10/17 23:45 Urine Urobilinogen < 2.0 mg/dL (<2.0) 03/10/17 23:45 Ur Leukocyte Esterase Neg (Negative) 03/10/17 23:45 Urine WBC (Auto) < 1.0 /HPF (0.0-6.0) 03/10/17 23:45 Urine RBC (Auto) 1.0 /HPF (0.0-6.0) 03/10/17 23:45 U Epithel Cells (Auto) < 1.0 /HPF (0-13.0) 03/10/17 23:45
[2017-03-15 16:20] LABS: ISTAT Base Excess 17; ISTAT PCO2 65.9 (35-45); ISTAT PH 7.412 (7.35-7.45); ISTAT PO2 62 (80-105); ISTAT SO2 90; ISTAT TCO2 44
--- NOTE | 2017-03-15 17:22 | XRay Report ---
FINAL REPORT EXAM: XR CHEST 1V AP HISTORY: SOB TECHNIQUE: AP portable view of the chest PRIORS: CXR 03/10/2017 FINDINGS: Lines, tubes, and devices: N/A Lungs and pleura: Trachea is normal in position. Suboptimal inspiration is seen. New perihilar congestion, small bilateral effusions, and left basilar atelectasis is noted. Cardiomediastinal silhouette: Cardiac size is the probably normal given AP projection. Other: Bony structures are intact. IMPRESSION: New perihilar congestion with small bilateral effusions and left basilar atelectasis
[2017-03-15] MEDS: FLOMAX PO SCH (22:24)
--- NOTE | 2017-03-16 09:47 | Discharge Summary ---
Providers - Providers Date of Admission: 03/11/17 01:12 Date of discharge: 03/16/17 Attending physician: SHIKHA MARTINEZ Cardiology Primary care physician: [employer] COORDINATOR Hospitalization Reason for admission: shortness of breath, diastolic heart failure. Condition: Stable Pertinent studies: Chest x-ray, EKG. Procedures: Non- Hospital course: 76-year-old male who is a resident of a [facility] facility, with COPD, HTN, CVA, DM, ARF, [place], BPH, was found to having difficulty breathing and hypoxic as per SNF nursing staff. Pt transported to ED for evaluation. Pt states that he has difficulty breathing, and is unable to describe onset and duration of symptoms. Pt at bedside and is unable to provide history. No reports of fever, chills, CP, Palpitations, NVD, leg swelling, calf pain, prolonged travel, individual/family history of DVT/PE, Productive cough, or recent ill contacts. Pt seen and evaluated in ED and found to be hypoxemic and in respiratory distress. Patient was placed on BiPAP, bronchodilators, gentle diuresis, aspirin, beta karthik, and lisinopril. Was admitted to telemetry. Had minimally elevated troponin level however had no chest pain. Cardiac consult was obtained. Conservative management was recommended in view of patient multiple medical conditions including dementia. Shortness of breath improved with gentle diuresis. Glycemic control was with sliding scale insulin. Disposition: DC/TX SNF W [facility] CERT Core Measure Documentation - Palliative Care Palliative Care/ Comfort Measures: Not Applicable - Core Measures Any of the following diagnoses?: heart failure - Heart Failure Discharge Requirements NETO/ARB for LVSD if EF <40%: Yes Beta karthik at discharge: Yes Exam - Constitutional Vitals: Temp Pulse Resp BP Pulse Ox 97.7 F 60 22 131/69 98 03/16/17 07:45 03/16/17 09:14 03/16/17 09:14 03/16/17 07:45 03/16/17 09:14 General appearance: Present: no acute distress, well-nourished - EENT Eyes: Present: PERRL - Neck Neck: Present: supple, normal ROM - Respiratory Respiratory effort: normal Respiratory: bilateral: diminished - Cardiovascular Heart Sounds: Present: S1 & S2. Absent: rub, click - Extremities Extremities: pulses symmetrical, No edema Peripheral Pulses: within normal limits - Abdominal General gastrointestinal: Present: soft, non-tender, non-distended, normal bowel sounds Male genitourinary: Present: normal - Integumentary Integumentary: Present: clear, warm, dry - Musculoskeletal Musculoskeletal: gait normal, strength equal bilaterally - Psychiatric Psychiatric: appropriate mood/affect, intact judgment & insight - Neurologic Neurologic: CNII-XII intact, moves all extremities Plan Activity: advance as tolerated Diet: low fat, low cholesterol, low salt, diabetic Special Instructions: record daily BP diary Follow up with: PRIMARY CARE, [Primary Care Provider] - 3-5 Days Prescriptions: Insulin Lispro [HumaLOG VIAL] 1 dose SQ AC PRN #1 vial PRN Reason: Hyperglycemia Lisinopril [Zestril TAB] 2.5 mg PO QDAY #30 tab Metoprolol Succinate 25 mg PO DAILY #30 tab.er.24h Tamsulosin [Flomax] 0.4 mg PO HS #30 capsule
--- NOTE | 2017-03-16 10:44 | XRay Report ---
AP CHEST: HISTORY: Shortness of breath There is poor inspiration. Mild bibasilar atelectasis has nearly resolved since yesterday's exam. The lungs are grossly clear. The cardiac silhouette is poorly defined but appears to be mildly enlarged. Normal pulmonary vascularity. IMPRESSION: Borderline to mild cardiomegaly. No acute cardiopulmonary process appreciated.
[2017-03-16] MEDS: FERGON PO SCH (10:58)
[2017-03-16] MEDS: ABILIFY PO SCH (10:58)
[2017-03-16] MEDS: RisperDAL PO SCH ×2 (10:59→21:46)
[2017-03-16] MEDS: BABY ASPIRIN PO SCH (10:59)
[2017-03-16] MEDS: LASIX IV SCH (10:59)
[2017-03-16] MEDS: CULTURELLE PO SCH ×2 (10:59→21:46)
[2017-03-16] MEDS: celeXA PO SCH (10:59)
[2017-03-16] MEDS: PROSCAR PO SCH (10:59)
[2017-03-16] MEDS: LOPRESSOR PO SCH ×2 (11:00→21:46)
[2017-03-16] MEDS: LOVENOX SUB-Q SCH (11:00)
[2017-03-16] MEDS: FLOMAX PO SCH (21:46)
[2017-03-17 09:26] VITALS: BP 106/60
[2017-03-17] MEDS: ABILIFY PO SCH (10:18)
[2017-03-17] MEDS: BABY ASPIRIN PO SCH (10:18)
[2017-03-17] MEDS: celeXA PO SCH (10:18)
[2017-03-17] MEDS: LASIX IV SCH (10:18)
[2017-03-17] MEDS: LOPRESSOR PO SCH (10:18)
[2017-03-17] MEDS: RisperDAL PO SCH (10:18)
[2017-03-17] MEDS: PROSCAR PO SCH (10:19)
[2017-03-17] MEDS: LOVENOX SUB-Q SCH (10:19)
[2017-03-17] MEDS: CULTURELLE PO SCH (10:29)
[2017-03-17] MEDS: FERGON PO SCH (10:29)
--- NOTE | 2017-03-17 14:54 | Progress Note ---
Assessment and Plan Patient was discharged yesterday but arrangement for BiPAP was no completed. He therefore had to leave today Patient is a 76 yo man from [facility] w/ history of Diastolic heart failure, Echo done 01/30/2017 showed EF 55-60%, mild LVH, BPH, COPD, CVA, Dementia, DM2 and HTN who presents with sob and hypoxia. He is DNR per records. CXR shows mild chf; troponin slightly elevated but unchanged from baseline. -Acute on chronic decompensated diastolic heart failure: stable back to base line -Acute hypoxic respiratory failure: continue 02 -Chronic hyponatremia: Continue to monitor -Hyperkalemia, resolve. Continue to monitor, creatinine 1.3 estimated GFR ~60 -Type II [place]: followed by cardiology, and conservative management -DVT prophylaxis: Subcutaneous Lovenox DO NOT RESUSCITATE Discharged back to SNF Subjective Date of service: 03/17/17 Principal diagnosis: acute on chronic DHF Interval history: awaiting d/c back to [facility] Objective - Constitutional Vitals: Vital Signs - 12hr 03/17/17 03/17/17 03/17/17 06:20 08:14 08:36 Temperature 98.3 F 98.3 F Pulse Rate 72 Pulse Rate [ 62 Left Radial] Pulse Rate [ 70 Right Radial] Respiratory 20 20 Rate Blood Pressure 125/65 [Left Radial Artery] Blood Pressure 106/60 [Right Arm] O2 Sat by Pulse 98 95 Oximetry 03/17/17 03/17/17 09:17 10:42 Temperature Pulse Rate Pulse Rate [ Left Radial] Pulse Rate [ Right Radial] Respiratory Rate Blood Pressure [Left Radial Artery] Blood Pressure [Right Arm] O2 Sat by Pulse 95 95 Oximetry General appearance: Present: no acute distress, well-nourished, other (confused) - EENT Eyes: PERRL, EOM intact ENT: hearing intact, clear oral mucosa - Neck Neck: supple, normal ROM - Respiratory Respiratory effort: normal Respiratory: bilateral: CTA - Cardiovascular Rhythm: regular Heart Sounds: Present: S1 & S2. Absent: gallop, rub Extremities: pulses intact, No edema, normal color, Full ROM - Gastrointestinal General gastrointestinal: Present: soft, non-tender, non-distended, normal bowel sounds - Integumentary Integumentary: clear, warm, dry - Musculoskeletal Musculoskeletal: generalized weakness - Neurologic Neurologic: moves all extremities - Psychiatric Psychiatric: memory intact, appropriate mood/affect, intact judgment & insight - Labs CBC & Chem 7: 03/15/17 04:54 03/15/17 04:54 Labs: Abnormal lab results 03/16/17 03/16/17 03/17/17 Range/Units 18:24 20:53 08:36 POC Glucose 170 H 189 H 143 H (70-105) 03/17/17 Range/Units 11:36 POC Glucose 182 H (70-105)
== END 2017-03-17 12:22 | DRG 280 ==
LOC: ED 21:04 → 4A 03-11 01:12
PROVIDERS: ADMIT Internal Medicine; ATTEND Family Medicine
PROC: 5A09557 Assistance with Respiratory Ventilation, Greater than 96 Consecutive Hours, Continuous Positive Airway Pressure (ICD-10-PCS; principal; 2017-03-10)
PROC: 4A033R1 Measurement of Arterial Saturation, Peripheral, Percutaneous Approach (ICD-10-PCS; 2017-03-15)
DX: I21.4 Non-ST elevation (NSTEMI) myocardial infarction (principal); I50.33 Acute on chronic diastolic (congestive) heart failure; J96.01 Acute respiratory failure with hypoxia; E87.1 Hypo-osmolality and hyponatremia; E87.5 Hyperkalemia; J44.9 Chronic obstructive pulmonary disease, unspecified; F03.90 Unspecified dementia, unspecified severity, without behavioral disturbance, psychotic disturbance, mood disturbance, and anxiety; N40.0 Benign prostatic hyperplasia without lower urinary tract symptoms; I11.0 Hypertensive heart disease with heart failure; E11.9 Type 2 diabetes mellitus without complications; Z66 Do not resuscitate; E11.65 Type 2 diabetes mellitus with hyperglycemia; M19.90 Unspecified osteoarthritis, unspecified site; D64.9 Anemia, unspecified; Z86.73 Personal history of transient ischemic attack (TIA), and cerebral infarction without residual deficits; Z90.49 Acquired absence of other specified parts of digestive tract; Z82.49 Family history of ischemic heart disease and other diseases of the circulatory system; Z83.3 Family history of diabetes mellitus
CPT/HCPCS: 36415; 36600; 71010; 71020; 80048; 80061; 81001; 82550; 82553; 82803; 82962; 83735; 83880; 84484; 85025; 85027; 85379; 87040; 93005; 93010; 94640; 94660; 94760; 96374; 96375; 99291; J1650; J1815; J1940; J1956; J2930